=== PATIENT | male | born 1955 | race Caucasian/White ===

== ENCOUNTER → 2020-08-01 13:34 | Outpatient (BNVA) | payer MEDICARE, OTHER, SELFPAY | PROVIDERS: Family Provider Family Medicine; Visit Provider Emergency Medicine | DX: Z20.828 Contact with and (suspected) exposure to other viral communicable diseases (principal) | CPT/HCPCS: 87635 ==

== ENCOUNTER 2021-07-20 03:54 | Observation (INO) | payer MEDICARE, OTHER, SELFPAY ==
[2021-07-20] VITALS (22 sets, daily range): BP systolic 104–164; BP diastolic 69–96; PULSE 69–94; RESP 11–24; TEMP 36.8–37.1; O2SAT 84–96; BMI 38.0; BMI 37.2
--- NOTE | 2021-07-20 03:57 | CTR_ITS ---
PROCEDURE INFORMATION: Exam: CT Head Without Contrast Exam date and time: 07/20/2021 3:57 AM Age: 66 years old Clinical indication: Altered mental status/memory loss; Confusion or disorientation; Additional info: Symptoms of acute stroke TECHNIQUE: Imaging protocol: Computed tomography of the head without contrast. Radiation optimization: All CT scans at this facility use at least one of these dose optimization techniques: automated exposure control; mA and/or kV adjustment per patient size (includes targeted exams where dose is matched to clinical indication); or iterative reconstruction. Other technique: STROKE PROTOCOL was implemented. COMPARISON: No relevant prior studies available. RADIATION DOSE METRICS: Total DLP (mGy-cm): 784.31 FINDINGS: Brain: No hemorrhage, mass effect or midline shift. No acute, major vascular distribution infarction identified. There is a small focus of encephalomalacia in the left frontal lobe, likely sequela of previous insult. There is foci of decreased attenuation in the periventricular and subcortical white matter, likely representing chronic small vessel ischemic changes. Mild cerebral volume loss is present. No intra-axial or extra-axial fluid collection seen. Cerebral ventricles: No ventriculomegaly. Paranasal sinuses: There is near complete opacification of the ethmoid air cells, partial opacification of the frontal sinuses, and mild mucosal thickening of the included maxillary sinuses and sphenoid sinuses. Mastoid air cells: Visualized mastoid air cells are well aerated. Bones/joints: Unremarkable. No acute fracture. Soft tissues: Unremarkable. CT/CT head wo con* [id number] IMPRESSION: 1. No acute intracranial abnormality. 2. Pansinus inflammatory changes. ASSESSMENT: ASPECTS ([place] Stroke Program Early CT Score) is 10. Radiation Dose CTDIVOL = (mGy): DLP = 784.31 (mGy-cm)
--- NOTE | 2021-07-20 03:57 | ECG_ITS ---
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 Measurements Intervals [place] Rate: 73 P: -10 [place]: 173 QRS: -17 QRSD: 106 T: 8 QT: 381 QTc: 420 Interpretive Statements SINUS RHYTHM MINIMAL VOLTAGE CRITERIA FOR LVH, CONSIDER NORMAL VARIANT [MEETS CRITERIA IN ONE OF: R(aVL), S(V1), R(V5), R(V5/V6)+S(V1)] No previous ECG available for comparison Electronically Signed On 07-21-2021 17:39:53 REAL ESTATE PROFESSOR by Iraj Tucker M.D. [id number]
--- NOTE | 2021-07-20 03:57 | XRR_ITS ---
PROCEDURE INFORMATION: Exam: XR Chest Exam date and time: 07/20/2021 3:57 AM Age: 66 years old Clinical indication: Dyspnea; Additional info: CVA TECHNIQUE: Imaging protocol: XR of the chest. Views: 1 view. COMPARISON: CT chest w con* [id number] 12/12/2018 1:31 PM FINDINGS: Lungs: Minor areas of scarring or atelectasis lower lungs. Pleural spaces: Unremarkable. No pleural effusion. No pneumothorax. Heart/Mediastinum: Cardiomediastinal silhouette is similar. Vasculature: Tortuosity thoracic aorta. Bones/joints: Unremarkable. XR/XR chest 1V portable [id number] IMPRESSION: 1. Minor scarring or atelectasis lower lungs. 2. Atherosclerosis thoracic aorta. Radiation Dose CTDIVOL = (mGy): DLP = (mGy-cm)
--- NOTE | 2021-07-20 04:12 | ED_ITS ---
HPI - Neuro Symptoms/Deficit General: Chief Complaint: Neuro Symptoms/Deficit Stated Complaint: POSSIBLE STROKE Time Seen by Provider: 07/20/21 03:57 Source: patient, family and EMS Mode of arrival: EMS Limitations: altered mental status History of Present Illness: HPI Narrative: 58-year-old male who is here by EMS for strokelike symptoms. He went to bed at 9:00 per he had gotten up at 1:00 to go to the bathroom she spoke to him asking him what he was doing he said his get up to go the bathroom she asked him if he is up for the day and he said no and went back to bed. She states that he then woke up that 3:00 with confusion he was having a hard time using his right hand and was having slurred speech and difficulty finding his words with speaking and confusion.. Here he is able to tell me his name but he is confused and does have some word finding difficulty. Associated symptoms: Deny chest pain, nausea or vomiting Review of Systems Const: Denies: fever(s), chills, body aches or change in appetite Eyes: Denies: blurry vision or eye discomfort ENMT: Denies: throat pain or dental pain Card: Denies: chest pain Resp: Denies: dyspnea GI: Denies: abdominal pain, nausea, vomiting or diarrhea : Denies: dysuria Musc: Denies: neck pain or back pain Skin/Breast: Denies: rash Neuro: Reports: Slurred speech present Psych: Denies: depression Dante/Lymph: Denies: easy bruising All/Imm: Denies: urticaria PFSH ED PFSH: Medical History No pertinent past medical history Skin cancer (melanoma) Surgical History H/O melanoma excision Family History Other Cancer Social History Smoking and tobacco status: never smoked Alcohol intake: never Substance/Drug Use: never Household members: spouse Housing: House NIH stroke score NIHSS: Level Of Consciousness - 1a: 2 Level Of Consciousness Questions - 1 b: Both Correct Level Of Consciousness Commands - 1c: Both Correct Best Gaze - 2: Normal Visual Cochran - 3: Partial Hemianopia Facial Palsy - 4: Minor Paralysis Motor Arm Right - 5: No Drift Motor Arm Left - 5: No Drift Motor Leg Right - 6: No Drift Motor Leg Left - 6: No Drift Limb Ataxia - 7: Absent Sensory - 8: Normal Best Language - 9: Mild/Moderate Aphasia Dysarthia - 10: Mild/Moderate Dysarthia Extinction And Inattention - 11: 0 Score: Total Score: 6 Physical Exam Const: COMMON NORMALS: healthy appearing; negative for patient oriented x3 ORIENTATION/CONSCIOUSNESS: Yes awake and Yes oriented to person; not oriented to time HENMT: COMMON NORMALS: normocephalic and atraumatic HEAD & SCALP: normocephalic and atraumatic Eye: COMMON NORMALS: Equal, round and reactive pupils present and EOMs intact bilaterally PUPIL: Yes Equal, round and reactive pupils present Neck/C-Spine: COMMON NORMALS: full ROM and supple Chest: COMMONS NORMALS: normal inspection of the chest and normal palpation of entire chest wall Resp: COMMON NORMALS: normal respiratory effort, No retractions, No use of accessory muscles and clear to auscultation bilaterally AUSCULTATION: clear to auscultation bilaterally Cardio: COMMON NORMALS: regular rate, regular rhythm and No murmurs present (Cardio) RATE: regular rate RHYTHM: regular rhythm GI: COMMON NORMALS: Normal to inspection, nondistended, normoactive bowel sounds present, Soft to palpation, non-tender and no masses PALPATION: Yes Soft to palpation Extremity: COMMON NORMALS: normal to inspection and full ROM Neuro: COMMON NORMALS: moves all extremities; negative for patient oriented x3 SENSORIUM/ORIENTATION: Yes oriented to person and No oriented to time CRANIAL NERVES: Yes other (loss visual cochran right lower quadrant of both eyes) SPEECH: Other neuro speech findings (Moderate aphasia) SENSORY EXAM: No extremities MOTOR EXAM: 5/5 motor strength present throughout Psych: COMMON NORMALS: mental status grossly normal, Normal thought process present and cooperative THOUGHT PROCESS: Normal thought process present Skin: COMMON NORMALS: no rashes or lesions noted and no wounds GENERAL SKIN EXAM: no rashes or lesions noted Course Vital Signs: Vital signs: Vital Signs Temperature 98.7 F 07/20/21 19:00 Pulse Rate 81 07/20/21 19:30 Respiratory Rate 17 07/20/21 19:30 Blood Pressure 132/93 07/20/21 19:30 Pulse Oximetry 88 L 07/20/21 19:30 MDM - Neuro Symptoms/Deficit MDM Narrative: Medical decision making narrative: Patient presents here with strokelike symptoms he was in the treatment window and was given TPA. Was a slight delay in the TPA had ordered at to be given at 415 IV by EMS and went bad nurse had to start another IV. Patient was still within the 4-1/2-hour treatment window he had some improvement here after TPA CTA showed no acute abnormality will admit the ICU. Lab Data: Labs: Lab Results 07/20/21 07/20/21 07/20/21 04:25 04:25 04:25 WBC 6.8 10^3/uL 10^3/ uL (4.0-10.0) RBC 4.96 10^6/uL 10^6 /uL (4.1-5.3) Hgb 14.2 g/dL g/dL (11.7-16.6) Hct 41.9 % L % (42.0-52.0) MCV 84.5 fl fl (80-94) MCH 28.6 pg pg (28.0-34.0) MCHC 33.9 g/dL g/dL (30.0-36.0) RDW 14.4 % % (12.1-15.1) Plt Count 230 10^3/cmm 10^3 /cmm (130-400) MPV 10.0 fL fL (7.4-10.4) Neut % (Auto) 57.3 % % Lymph % (Auto) 29.9 % % [place] % (Auto) 7.1 % % Eos % (Auto) 4.9 % % Baso % (Auto) 0.4 % % Neut # (Auto) 3.88 10^3/uL 10^3 /uL (1.8-7.7) Lymph # (Auto) 2.0 10^3/uL 10^3/ uL (0.8-4.8) [place] # (Auto) 0.5 10^3/uL 10^3/ uL (0.2-0.9) Eos # (Auto) 0.3 10^3/uL 10^3/ uL (0.0-0.8) Baso # (Auto) 0.0 10^3/uL 10^3/ uL (0.0-0.1) Nucleated RBC % (a uto) 0 % % Nucleated RBCs # 0.0 /100WBC /100W BC PT 13.20 SECONDS SEC ONDS (12.1-14.9) INR 0.97 (0.8-1.2) APTT 26.4 SECONDS SECO NDS (23.9-36.7) Sodium 139 mmol/L mmol/L (136-145) Potassium 4.7 mmol/L mmol/L (3.5-5.1) Chloride 104 mmol/L mmol/L (98-107) Carbon Dioxide 25 mmol/L mmol/L (22-29) Anion Gap 14.7 (5-19) BUN 17 mg/dL mg/dL (8-23) Creatinine 0.8 mg/dL mg/dL (0.7-1.2) GFR Calculation 96.1 mL/min mL/mi n (90-130) Glucose 110 mg/dL mg/dL (65-115) POC Glucose Calculated Osmolal ity 290 mOsm/kg mOsm/ kg (285-295) Calcium 8.3 mg/dL L mg/dL (8.5-10.5) Total Bilirubin 0.4 mg/dL mg/dL (0.15-1.2) AST 16 U/L U/L (0-40) ALT 18 U/L U/L (0-41) Alkaline Phosphata se 125 IU/L IU/L (40-130) Total Protein 6.1 g/dL L g/dL (6.6-8.7) Albumin 3.9 g/dL g/dL (3.5-5.2) Globulin 2.2 g/dL g/dL (1.3-4.6) Urine Color Urine Appearance Urine pH Ur Specific Gravit y Urine Protein Urine Glucose (UA) Urine Ketones Urine Blood Urine Nitrate Urine Bilirubin Urine Urobilinogen Ur Leukocyte Mony ase Urine RBC Urine WBC Ur Squamous Epith Cells Amorphous Sediment Urine Bacteria 07/20/21 07/20/21 04:29 05:30 WBC RBC Hgb Hct MCV MCH MCHC RDW Plt Count MPV Neut % (Auto) Lymph % (Auto) [place] % (Auto) Eos % (Auto) Baso % (Auto) Neut # (Auto) Lymph # (Auto) [place] # (Auto) Eos # (Auto) Baso # (Auto) Nucleated RBC % (a uto) Nucleated RBCs # PT INR APTT Sodium Potassium Chloride Carbon Dioxide Anion Gap BUN Creatinine GFR Calculation Glucose POC Glucose 107 mg/dL mg/dL (70-110) Calculated Osmolal ity Calcium Total Bilirubin AST ALT Alkaline Phosphata se Total Protein Albumin Globulin Urine Color Straw (Yellow) Urine Appearance Clear (CLEAR) Urine pH 7 (5-7) Ur Specific Gravit y 1.010 (1.005-1.030) Urine Protein Neg (Negative) Urine Glucose (UA) Norm (Normal) Urine Ketones Negative (Negative) Urine Blood 2+ H (Negative) Urine Nitrate Negative (Negative) Urine Bilirubin Neg (Negative) Urine Urobilinogen Norm mg/dL mg/dL (Negative) Ur Leukocyte Mony ase Negative (Negative) Urine RBC 0-4 /hpf H /hpf (0-2) Urine WBC None /hpf /hpf (0-5) Ur Squamous Epith Cells 0-4 /hpf H /hpf (0-5) Amorphous Sediment Not Reportable Urine Bacteria Trace /hpf /hpf (NONE) Discharge Plan Discharge Patient Disposition: Admitted As Inpatient Admit Provider: Fransisco Lane Clinical Impression: Cerebrovascular accident Qualifiers: CVA mechanism: unspecified Qualified Code(s): I63.9 - Cerebral infarction, unspecified Condition: Stable Coding Level of Care Code ED Combine Operator for [facility] Fwd Exam Comprehensive
--- NOTE | 2021-07-20 04:15 | CTR_ITS ---
PROCEDURE INFORMATION: Exam: CT Angiography Head With Contrast, Arteriography Exam date and time: 07/20/2021 4:15 AM Age: 66 years old Clinical indication: Other: CVA TECHNIQUE: Imaging protocol: Computed tomography angiography of the head with contrast. Exam focused on the arteries. 3D rendering (Not supervised by radiologist): MIP and/or 3D reconstructed images were created by the technologist. Radiation optimization: All CT scans at this facility use at least one of these dose optimization techniques: automated exposure control; mA and/or kV adjustment per patient size (includes targeted exams where dose is matched to clinical indication); or iterative reconstruction. Contrast material: VISI; Contrast volume: 95 ml; Contrast route: INTRAVENOUS (IV); COMPARISON: CT head wo con* [id number] 07/20/2021 3:58 AM RADIATION DOSE METRICS: Total DLP (mGy-cm): 3071.53 FINDINGS: ANTERIOR CIRCULATION: Right internal carotid artery: Unremarkable. Intracranial segment is patent with no significant stenosis. No aneurysm. Right middle cerebral artery: Unremarkable. No occlusion or significant stenosis. No aneurysm. Right anterior cerebral artery: Unremarkable. No occlusion or significant stenosis. No aneurysm. Left internal carotid artery: Unremarkable. Intracranial segment is patent with no significant stenosis. No aneurysm. Left middle cerebral artery: Unremarkable. No occlusion or significant stenosis. No aneurysm. Left anterior cerebral artery: Unremarkable. No occlusion or significant stenosis. No aneurysm. POSTERIOR CIRCULATION: Right vertebral artery: Unremarkable. No occlusion or significant stenosis. No aneurysm. Left vertebral artery: Unremarkable. No occlusion or significant stenosis. No aneurysm. Basilar artery: Unremarkable. No occlusion or significant stenosis. No aneurysm. Right posterior cerebral artery: Unremarkable. No occlusion or significant stenosis. No aneurysm. Left posterior cerebral artery: Unremarkable. No occlusion or significant stenosis. No aneurysm. Variant origin of left posterior cerebral distribution. Brain: No definite mass, mass effect, or midline shift. Cerebral ventricles: No ventriculomegaly. Bones/joints: Degenerative changes of bilateral temporomandibular joints. Soft tissues: Unremarkable. Paranasal sinuses: Mucosal thickening of the visualized paranasal sinuses. Nasal cavity: Elongated hyperdense or calcific density at the lower left nasal cavity partially extending within osseous structures at the maxilla. IMPRESSION: 1. Sinusitis. 2. Elongated hyperdense or calcific density partially position left nasal cavity and partial positioning within maxillary bone. The differential could include a nonspecific bony exostosis versus left nasal foreign body less likely consideration. PROCEDURE INFORMATION: Exam: CT Angiography Neck With Contrast Exam date and time: 07/20/2021 4:15 AM Age: 66 years old Clinical indication: Other: CVA TECHNIQUE: Imaging protocol: Computed tomography angiography of the neck with contrast. 3D rendering (Not supervised by radiologist): MIP and/or 3D reconstructed images were created by the technologist. Radiation optimization: All CT scans at this facility use at least one of these dose optimization techniques: automated exposure control; mA and/or kV adjustment per patient size (includes targeted exams where dose is matched to clinical indication); or iterative reconstruction. Contrast material: VISI; Contrast volume: 95 ml; Contrast route: INTRAVENOUS (IV); COMPARISON: CT head wo con* [id number] 07/20/2021 3:58 AM RADIATION DOSE METRICS: Total DLP (mGy-cm): 3071.53 FINDINGS: Right common carotid artery: No stenosis. No dissection or occlusion. Right internal carotid artery: No stenosis of the extracranial segment. No dissection or occlusion. Right external carotid artery: No occlusion or stenosis of the origin. Left common carotid artery: No stenosis. No dissection or occlusion. Left internal carotid artery: No stenosis of the extracranial segment. No dissection or occlusion. Left external carotid artery: No occlusion or stenosis of the origin. Right vertebral artery: No stenosis. No dissection or occlusion. Diminutive caliber. Left vertebral artery: No stenosis. No dissection or occlusion. Aorta: Calcified thoracic aorta. Thyroid: Irregular hypodense or partially cystic nodule left thyroid measures 2.8 cm. Partially calcified nodule right thyroid measures 0.9 cm. Soft tissues: Normal. No significant soft tissue swelling. Bones/joints: Mild degenerative change of cervical spine. Heart: Atherosclerotic calcification distribution of coronary arteries. CT/CT angio headneck* [id number] IMPRESSION: 1. No arterial occlusion or high-grade stenosis. 2. Calcification thoracic aortic arch. 3. Hypodense nodule left thyroid.Follow-up non-emergent thyroid ultrasound is recommended. 4. Degenerative changes cervical spine. COMMENTS: Consistent with the [place]'s Incidental Findings Committee white paper (J Am Gabi Radiol 2015): In patients aged 35 years and older with an incidental thyroid nodule equal to or greater than 1.[address], MRI or extrathyroidal US, further evaluation with dedicated thyroid US is recommended for patients with normal life expectancy and without comorbidities. For smaller nodules without suspicious features, no further evaluation or follow up is recommended. REFERENCES: NASCET CRITERIA. The degree of internal carotid artery stenosis is based on NASCET criteria. Normal is no stenosis. Mild is less than 50% stenosis. Moderate is 50-69% stenosis. Severe is 70% to 99% stenosis. Total occlusion is no detectable patent lumen. Radiation Dose CTDIVOL = (mGy): DLP = 3071.53~3071.53 (mGy-cm)
[2021-07-20 04:38] LABS: Glucose Point of Care 107 mg/dL (70-110)
[2021-07-20 05:01] LABS: Basophils % 0.4 %; Eosinophils # 0.3 10^3/uL (0.0-0.8); Eosinophils % 4.9 %; Hematocrit 41.9 % (42.0-52.0); Hemoglobin 14.2 g/dL (11.7-16.6); Lymphocytes % 29.9 %; Mean Corpuscular HGB Conc 33.9 g/dL (30.0-36.0); Mean Corpuscular Hemoglobin 28.6 pg (28.0-34.0); Mean Corpuscular Volume 84.5 fl (80-94); Monocytes # 0.5 10^3/uL (0.2-0.9); Monocytes % 7.1 %; Neutrophils # 3.88 10^3/uL (1.8-7.7); Neutrophils % 57.3 %; Nucleated Red Blood Cells % 0 %; Platelet Count 230 10^3/cmm (130-400); Red Blood Count 4.96 10^6/uL (4.1-5.3); Red Cell Distribution Width 14.4 % (12.1-15.1); White Blood Count 6.8 10^3/uL (4.0-10.0)
[2021-07-20 05:16] LABS: INR 0.97 (0.8-1.2)
[2021-07-20 05:17] LABS: Partial Thromboplastin Time 26.4 SECONDS (23.9-36.7)
[2021-07-20 05:19] LABS: Albumin Level 3.9 g/dL (3.5-5.2); Alkaline Phosphatase 125 IU/L (40-130); Blood Urea Nitrogen 17 mg/dL (8-23); Calcium 8.3 mg/dL (8.5-10.5); Carbon Dioxide 25 mmol/L (22-29); Chloride 104 mmol/L (98-107); Globulin 2.2 g/dL (1.3-4.6); Glomerular Filtration Rate 96.1 mL/min (90-130); Glucose 110 mg/dL (65-115); Osmolality Calculated 290 mOsm/kg (285-295); Sodium 139 mmol/L (136-145); Total Bilirubin 0.4 mg/dL (0.15-1.2); Total Protein 6.1 g/dL (6.6-8.7)
--- NOTE | 2021-07-20 05:22 | PC.NURSE ---
Upper extremity deficit Bitlateral arms extend without drift, no effort against gravity. 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
[2021-07-20] MEDS: iodixanol 320 mg/mL 100mL Btl IV (05:27)
--- NOTE | 2021-07-20 05:42 | P.HP_ITS ---
Providers/Chief Complaint Primary Care Provider: Pancho Carpenter MD Chief Complaint: POSSIBLE STROKE History of Present Illness Sami Hinojosa is a 66 year old male without significant past medical surgical history presented today for right-sided weakness and slurring of speech. is at the bedside who stating that he went to bed around 9 PM. Woke up at 1 AM and at that time he went to the bathroom without any limitations. Around 3 AM he was not able to target right hand to grab tablets, noticed mild slurring of speech at that time EMS was called. No previous history of CA, CHF, diabetes, hypertension. He does not take any medications at home on daily basis. In the ER NIH 6(slurring of speech, right-sided weakness, right lower quadrant visual field deficit) on presentation, CT head unremarkable, patient was complaining of headache since 3 AM. He received TPA. tPA bolus finished at 6 AM. Patient is stating that his headache is improving, I will give him a NIH of 1 for mild right-sided weakness. His symptoms seems to be resolving. Family at the bedside. Blood pressure 132/94 mmHg, afebrile, awake and alert. Patient is vaccinated with messenger RNA vaccine, for COVID-19. Review of Systems Const: Denies: fever(s) Eyes: Denies: change in vision ENMT: Denies: throat pain Card: Denies: chest pain Resp: Denies: dyspnea GI: Denies: abdominal pain : Denies: flank pain Musc: Denies: neck pain Skin/Breast: Denies: rash Neuro: Denies: headache(s) Psych: Denies: anxiety Endo: Denies: polyuria Dante/Lymph: Denies: easy bruising All/Imm: Denies: urticaria Medications/Allergies Home Medications Medication Instructions Recorded Confirmed Last Taken Type albuterol sulfate 90 mcg/actuation 2 puff INHALATION Q6H PRN #8.5 g 12/14/20 07/20/21 Unknown Rx aerosol inhaler benzonatate 100 mg capsule 100 mg PO TID 10 Days #30 cap 12/18/20 07/20/21 Unknown Rx levofloxacin 750 mg tablet 750 mg PO Q24H 7 Days #7 tab 12/18/20 12/18/20 Unknown Rx prednisone 20 mg tablet See Rx Instructions PO DAILY 10 12/18/20 12/18/20 Unknown Rx Days #10 tab Allergies Allergy/AdvReac Type Severity Reaction Status Date / Time No Known Allergies Allergy Verified 07/20/21 05:10 PFSH Acute PFSH: Medical History No pertinent past medical history Skin cancer (melanoma) Surgical History H/O melanoma excision Family History Other Cancer Social History Smoking and tobacco status: never smoked Alcohol intake: never Substance/Drug Use: never Household members: spouse Housing: House Vitals/I&O/Wt Last Vital Signs Pulse 80 07/20/21 04:10 Resp 16 07/20/21 04:10 BP 132/94 07/20/21 04:10 Pulse Ox 95 07/20/21 04:10 Weight last 48 hrs Weight 127.142 kg Physical Exam Narrative: EXAM NARRATIVE: Patient was laying supine NIH 1 for mild right-sided weakness EOMI, PERRLA I did not appreciate slurring of speech Looks well-hydrated Blood pressure stable S1, S2 Abdomen soft, distended, visceral obesity no signs of peritonitis Appropriate mood and affect No expressive aphasia and daughter at the bedside No audible stridor or wheezing Saturating well on room air Data : 07/20/21 04:25 07/20/21 04:25 A&P Assessment and plan (1) Cerebrovascular accident: Status: Acute Qualifiers: CVA mechanism: unspecified Qualified Code(s): I63.9 - Cerebral infarcti on, unspecified Additional A&P Information Acute CVA Status post TPA, bolus finished at [address] scan of head after 24 hours Patient is stating that he he started experiencing headache at 3 AM which currently is getting better but has not subsided completely NIH 1 which improved after TPA Goal blood pressure less than 180/80 mmHg He is afebrile Start aspirin 24 hours after TPA, continue atorvastatin PT/speech evaluation Dr. Hathaway consulted N.p.o. until speech evaluation SCDs DVT prophylaxis Full code Patient is vaccinated for COVID-19 Attestations Medical Necessity Statement*: Less than 2 midnights in the hospital expected Time Spent in Patient Care: Greater than 35 minutes Coding Level of Care Code Acute Web Designer Developer for [employer] Fwd Diagnoses Cerebrovascular accident I63.9 CVA mechanism: unspecified
[2021-07-20] MEDS: acetaminophen 325 mg Tablet 650 MG PO (05:54)
[2021-07-20 06:14] LABS: Alanine Aminotransferase 18 U/L (0-41); Anion Gap 14.7 (5-19); Aspartate Amino Transferase 16 U/L (0-40); Potassium 4.7 mmol/L (3.5-5.1)
--- NOTE | 2021-07-20 06:46 | PC.NURSE ---
See stroke paperwork for vitals and neuro checks.
--- NOTE | 2021-07-20 07:47 | PC.NURSE ---
0700 Pt arrived from ED with ED staff at bedside. Pt AAO to self only, all other questions are answered with jumbles words or I don't know . Pt connected to ICU monitors after transferring self over to ICU bed. Follows directions appropriately. Moves all extremities well. Slight weakness noted to RUE. No other weakness noted. Bilateral 18g PIV's to AC's noted. Both IV's flushed, L AC sluggish. Admission assessment completed as well as possible with pt. VSS. NIHSS of 4 upon arrival. Will continue to monitor.
--- NOTE | 2021-07-20 08:06 | USCV_ITS ---
Sami Hinojosa Age: 66 Gender: M : 1955 Exam Date: 07/20/2021 09:58 Ordering Phys: Isabel Hathaway MD Technologist: TETE [place] [facility] [place]: CVA BP: 142 / 84 HR: 85 Rhythm: Sinus Technical Quality: Very technically difficult study MEASUREMENTS (Male / Female) Normal Values 2D ECHO LV Diastolic Diameter PLAX 3.1 cm 4.2 - 5.9 / 3.9 - 5.3 cm LV Systolic Diameter PLAX 2.3 cm IVS Diastolic Thickness 1.4 cm 0.6 - 1.0 / 0.6 - 0.9 cm IVS Systolic Thickness 1.9 cm LVPW Diastolic Thickness 1.6 cm 0.6 - 1.0 / 0.6 - 0.9 cm LVPW Systolic Thickness 1.6 cm LVOT Diameter 2.0 cm LV Ejection Fraction 2D Teich 50.1 % LA Diameter 2.5 cm Aorta at Sinotubular Diameter 2.5 cm M-MODE Aortic Annulus Diameter 3.6 cm LA Ao Ratio MM 0.8 MV E Point Septal Separation 1.4 cm DOPPLER AV Peak Velocity 121.0 cm/s MV Area PHT 3.1 cm squared Mitral E to A Ratio 0.8 MV E' Velocity 58.0 cm/s TR Peak Velocity 193.0 cm/s TR Peak Gradient 14.9 mmHg TV Peak E Velocity 58.0 cm/s Right Atrial Pressure 3.0 mmHg Pulmonary Artery Systolic Pressu 17.9 mmHg PV Peak Velocity 84.0 cm/s RV Acceleration Time 0.1 s RV Ejection Time 0.2 s RV AcT/ET 0.5 FINDINGS Left Ventricle Technically very difficult study with limited visualization of cardiac structures. Normal left ventricular size. LV systolic function is grossly normal. Regional wall motion abnormalities cannot be assessed because of poor visualization. Grade 1 diastolic dysfunction is seen. Right Ventricle Not well visualized Right Atrium Not well visualized Left Atrium Not well visualized Mitral Valve Not well visualized. No significant stenosis or prolapse. There is no mitral regurgitation. Aortic Valve Not well visualized. No significant stenosis. There is no aortic regurgitation. Tricuspid Valve Not visualized. Insufficient TR jet to calculate RVSP Pulmonic Valve Not visualized Pericardium Not well-visualized Aorta Not well-visualized CONCLUSIONS Technically very difficult study with limited visualization of cardiac structures because of poor ultrasonic windows. Patient and family refused echo contrast. Grossly LV systolic function is normal. Grade 1 diastolic dysfunction. Valvular structures are not well-visualized however no gross abnormalities. No comparison studies are available Iraj Tucker MD (Electronically Signed) Final Date: 28 July 2021 17:51 S
[2021-07-20 08:08] LABS: Add Urine Microscopic? YES; Bilirubin Urine Neg (Negative); Blood Urine 2+ (Negative); Glucose Urine UA Norm (Normal); Ketones Urine Negative (Negative); Leukocyte Esterase Urine Negative (Negative); Nitrate Urine Negative (Negative); Protein Urine Neg (Negative); Urine Appearance Clear (CLEAR); Urine Color Straw (Yellow); Urobilinogen Urine Norm (Negative); pH Urine 7 (5-7)
[2021-07-20 08:26] LABS: RBC Urine 0-4 /hpf (0-2)
[2021-07-20 08:27] LABS: Add Urine Culture? No; Bacteria Urine TRACE /hpf; Squamous Epithelial Cell Urine 0-4 /hpf (0-5)
[2021-07-20] MEDS: pneumococcal (23 valent) SDV 0.5 mL IM (08:35)
[2021-07-20] MEDS: benzonatate 100 mg Capsule PO ×3 (08:36→20:39)
[2021-07-20] MEDS: atorvastatin 40 mg Tablet 80 MG PO (08:36)
--- NOTE | 2021-07-20 09:19 | PC.PHAR ---
pts family states the pt takes no rx medications states the pt doesnt use the inhaler any longer-pt unable to verify meds pt couldnt verify his -pts family verified pts and meds
--- NOTE | 2021-07-20 10:08 | P.PN_ITS ---
Subjective Subjective: Interval history: History and physical reviewed. Patient without any specific complaints today. Nursing has noted word substitution, word salad. He received TPA earlier this morning. Medications: Reviewed: Yes Vitals/I&O/Wt Last Vital Signs Temp 98.3 F 07/20/21 09:00 Pulse 71 07/20/21 09:00 Resp 13 07/20/21 09:00 BP 132/94 07/20/21 04:10 Pulse Ox 95 07/20/21 04:10 Weight last 48 hrs Weight 124.454 kg Weight 127.142 kg Physical Exam Narrative: EXAM NARRATIVE: General exam no distress, conversant, word salad Neck supple Cardiovascular regular rate and rhythm Lungs clear Abdomen is soft Extremities no cyanosis clubbing or edema, cap refill brisk Skin no rash Neuro: Some word substitution/salad noted. Right upper extremity neglect. Right upper extremity strength still intact. Data : 07/20/21 04:25 07/20/21 04:25 A&P Assessment and plan (1) Cerebrovascular accident: Was 6 on his NIH score in the emergency department. Appears to be lower than that currently. Symptomatology right-sided neglect, dysphasia Received TPA earlier today CT head nonacute on admission. Repeat CT head later today. CTA head and neck no flow-limiting stenosis. Aspirin, Plavix, statin Permissive hypertension Echocardiogram Telemetry indicates sinus rhythm Consider outpatient event monitor, JELENA Outpatient neurology follow-up Status: Acute Qualifiers: CVA mechanism: unspecified Qualified Code(s): I63.9 - Cerebral infarction, unspecified Additional A&P Information Thyroid nodule found on CTA. Check TSH. Consider outpatient ultrasound. Full code Lovenox for DVT prophylaxis Attestations Medical Necessity Statement*: Needs continued hospitalization for close monitoring status post TPA for CVA Coding Level of Care Code Acute School Operations Manager for [facility] Fwd Diagnoses Cerebrovascular accident I63.9 CVA mechanism: unspecified
--- NOTE | 2021-07-20 11:03 | PC.OT ---
OT EVALUATION ORDERS RECEIVED. WILL HOLD UNTIL TOMORROW DUE TO TPA ADMINISTRATION.
[2021-07-20] MEDS: acetaminophen 500 mg Tablet PO ×2 (11:10→23:42)
--- NOTE | 2021-07-20 11:22 | PC.NURSE ---
Pt c/o DELUCA. Acetaminophen given per orders. Neuro test performed. no worsening of neuro status. Will monitor.
[2021-07-20] MEDS: oxyCODONE 5 mg IR Tab/Cap PO ×2 (12:15→15:46)
--- NOTE | 2021-07-20 13:02 | PC.PT ---
Hold PT evaluation today. Pt received TPA 0600 on 07/20; will reattempt eval after 0600 on 07/21.
--- NOTE | 2021-07-20 14:00 | PC.NURSE ---
Pt still c/o DELUCA, stating that it feels worse. notified.
--- NOTE | 2021-07-20 14:45 | PC.NURSE ---
Pt shows definite R sided neglect. When moving R leg to wc pedal, pt was unsure of placement of foot. When giving pt med cup, he did not see the cup as this nurse moved it towards his R side. When the cup was moved midline he was able to see it and reach and grab it without difficulty. Continues to have difficulty with speech, word salad noted at times. Continues to c/o headache, CT completed early per MD order. No hemorrhage noted per CT report. Family notified. Will monitor.
--- NOTE | 2021-07-20 15:00 | CT_ITS ---
WS: [id number] CT HEAD NONCONTRAST HISTORY: post tpa TECHNIQUE: Contiguous axial imaging performed through the brain in 2.5 mm imaging. Bone and soft tiss ue windows. Sagittal and coronal reformats reviewed. All CT scans at [facility] use at least one of these dose optimization techniques: automated exposure control; mA and/or kV adjustment per pa tient size (includes targeted exams where dose is matched to clinical indication); or iterative recon struction. DLP: 852.8 mGy.cm COMPARISON: 07/20/2021 No acute intracranial hemorrhage, midline shift or mass effect. Interval development of edema with loss of the colin-white matter junction and differentiation involvi ng a large portion of the LEFT MCA territory. No hemorrhagic transformation. There is no midline shif t. Ventricles: Normal size with no hydrocephalus. No inferior displacement of cerebellar tonsils. Paranasal sinuses: Mild mucoperiosteal thickening in the paranasal sinuses. No air-fluid levels. Mastoid air cells: Well pneumatized. Calvarium and scalp: Skull is intact with no soft tissue edema or swelling. CT/CT head wo con* 18800 IMPRESSION: 1. No acute hemorrhage or hemorrhagic transformation. 2. Interval development of a subacute infarct involving a large portion of the LEFT MCA territory.
--- NOTE | 2021-07-20 15:26 | PC.NURSE ---
Pt states that he is feeling better. Will monitor
--- NOTE | 2021-07-20 17:42 | PC.NURSE ---
Shift Note Frequent safety and comfort rounds continue. Orders and/or nursing care completed as indicated. Patient monitored for response to intervention and treatment(s). Education provided includes treatment plan, need for continued monitoring, s/s of bleeding and stroke, and medications. Pt requires frequent reminders of need to be here. He is adamant that he could go home and do what he needs to. Educated that he must remain here to be monitored for any s/s of increasing stroke sx. Pt agrees at this time, and daughter at bedside. VSS. Pt able to stand at bedside to urinate with standby assist. Nih score 5. VSS. Will continue to monitor.
[2021-07-20] MEDS: ondansetron 2 mg/ML SDV 2 mL 4 MG IVP (19:05)
--- NOTE | 2021-07-20 19:35 | PM.SAN ---
Stroke Alert Activation ED Arrival Date: 07/20/21 ED Arrival Time: 03:57 ED Physican at Bedside: 03:57 Last Known Normal/at Baseline: 2-3 hours ago Other Last Known Well Infomation: I participated in telemetry stroke with Dr. Rose from 352 until around 430 Stroke team was activated at 0352, 5 minutes prior to the patient's arrival by EMS. I called immediately back to the emergency department and the patient was rolling in and going straight to CAT scan with Dr. Rose. Dr. Rose obtained history from EMS and then from the patient's . He was last known normal at 1 in the morning when he got up to the bathroom, while she was wide-awake. She was just getting ready to go to bed at 3 in the morning when he got up and could not use his right hand properly, could not find his cup with his right hand and could not see objects on his right like the cupboard door. He was confused and seemed fearful that things were not as they should be. She became concerned that he was having a stroke and called EMS. Dr. Rose determined that the patient was confused and could not read simple sentences. He had difficulty with repetition and he had a right visual field cut. These findings suggested either left middle cerebral artery posterior branch or left posterior cerebral artery ischemia. We agreed that the patient should receive TPA, since his cognition was significantly impaired, he had a measurable visual deficit, was not on blood thinners, his blood pressure was under control and there were no contraindications to TPA. The family was in favor. It looks like the bolus was given at 0415 Stroke Alert Activated by: EMS Stroke Alert Activation Time: 03:52 Stroke MD @ Bedside Time: 03:53 NIH Stroke Scale Time: 04:12 NIH Stroke Scale Score: NIH Stroke Scale Score: 6 Stroke Alert Data/Treatment tPA Started Time: tPA Started - Time: 04:15 Patient & Family Educated on: Cause of Stroke, Risk Factors and Treament Plan Other Patient & Family Education: I visited with the patient and the family at 0745 Standardized Stroke Orders Used: Yes Other Information: Neurologic exam this morning at 07 45: Mental status exam he was alert and made good eye contact. He followed some simple commands but no two-step commands and not across the midline. He could repeat a simple and a complex phrase. Cranial nerves remarkable for dense right homonymous hemianopsia. No motor deficit. No drift. Fine movements rapid and symmetric in the hands. Critical Care Time Critical Care Time: 30 - 74 mins A&P Assessment and plan (1) Cerebrovascular accident: There is a 66-year-old man who woke up at 3 in the morning, having been normal 2 hours before, with a visual field cut and confusion with a alexia. The examination obtained by Dr. Rose was consistent with an acute ischemic stroke and there was no contraindication to TPA. The patient promptly received TPA within 20 minutes of arrival. 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 His CT angiogram shows no significant stenosis of the intracranial or extracranial vessels. Aortic arch calcifications were seen. Plan cardiac work-up including echocardiogram followed by JELENA and event detector as outpatient. 24 hours after TPA initiate Plavix and aspirin. CAT scan of the head today confirms a posterior branch left middle cerebral artery stroke with edema but no hemorrhage. I talked with the family and explained that the benefit of TPA is obtained at long-term (3 months). Patient was not a candidate for embolectomy. His prognosis should be good based upon his exam. Status: Acute Qualifiers: CVA mechanism: unspecified Qualified Code(s): I63.9 - Cerebral infarction, unspecified (2) Received intravenous tissue plasminogen activator (tPA) in emergency department: Status: Acute Coding Level of Care Code Acute Visual Effects Editor for [facility] Fwd Diagnoses Cerebrovascular accident I63.9 CVA mechanism: unspecified Received intravenous tissue plasminogen activator (tPA) in emergency department Z92.82
[2021-07-21] VITALS (25 sets, daily range): BP systolic 105–169; BP diastolic 63–119; PULSE 73–107; RESP 11–25; TEMP 36.6–37.1; O2SAT 89–96
--- NOTE | 2021-07-21 01:56 | PC.NURSE ---
Patient apparently called on cell phone, asking to pick him up. Patient reoriented, explained POC, plans going forward. Patient agreed, still slightly confused but overall neurological status largely unchanged.
[2021-07-21 04:19] LABS: Basophils % 0.3 %; Eosinophils # 0.1 10^3/uL (0.0-0.8); Hematocrit 43.7 % (42.0-52.0); Hemoglobin 14.2 g/dL (11.7-16.6); Lymphocytes # 1.9 10^3/uL (0.8-4.8); Mean Corpuscular HGB Conc 32.5 g/dL (30.0-36.0); Mean Corpuscular Hemoglobin 28.5 pg (28.0-34.0); Mean Corpuscular Volume 87.8 fl (80-94); Mean Platelet Volume 9.9 fL (7.4-10.4); Monocytes # 0.5 10^3/uL (0.2-0.9); Monocytes % 5.4 %; Neutrophils # 6.47 10^3/uL (1.8-7.7); Nucleated Red Blood Cells % 0 %; Platelet Count 221 10^3/cmm (130-400); Red Blood Count 4.98 10^6/uL (4.1-5.3); Red Cell Distribution Width 14.6 % (12.1-15.1)
[2021-07-21 04:37] LABS: Anion Gap 15.4 (5-19); Blood Urea Nitrogen 11 mg/dL (8-23); Calcium 8.3 mg/dL (8.5-10.5); Carbon Dioxide 23 mmol/L (22-29); Chloride 104 mmol/L (98-107); Glomerular Filtration Rate 96.1 mL/min (90-130); Glucose 119 mg/dL (65-115); Osmolality Calculated 287 mOsm/kg (285-295); Potassium 4.4 mmol/L (3.5-5.1); Sodium 138 mmol/L (136-145)
--- NOTE | 2021-07-21 06:35 | PC.NURSE ---
Report given to day shift RN.
--- NOTE | 2021-07-21 06:52 | PC.NURSE ---
Pt report received, assessment completed. Pt AAO to self only. Unable to tell me his last name, the month, the year or the place that he is. When going over stroke scale words and images, he is able to use some alternate words to explain images but is unable to use the appropriate words. He has some sensory deprivation noted to R side and some R visual field loss. No weakness noted to RUE compared to yesterday. He is able to let staff know that his head hurts at times and that he needs to use urinal. HOB is elevated and CLWR. VSS, lung sounds CTA. Will monitor.
[2021-07-21] MEDS: atorvastatin 40 mg Tablet 80 MG PO (08:48)
[2021-07-21] MEDS: benzonatate 100 mg Capsule PO (08:49)
--- NOTE | 2021-07-21 09:56 | PC.CHAP ---
Pastoral Care Encounter/Spiritual Assessment Type of Contact [] Declined cell repairer visit [] Patient/Family/Request visit [] Outpatient visit [] Follow-up visit [] Physician referral [] Code/Alert [x] Routine visit [] Staff referral [] Actively dying [] Patient sleeping [x] Family support [] [] Out of room [] Palliative care [] [x] Receiving care in room [] Pre-surgical visit [] Trauma [] Long length of stay [x] ICU visit [x] Other: Relational/Emotional Strength [] Patient feels connected with others/family/visitors/staff [] Distress [] Loneliness/isolation [] Abandonment Spirituality of Patient [] Person of Natalya [] Attends Taoist of their Natalya [] Believes in Prayer [] Reads Bible or Sabianism materials [] There are Spiritual issues to be addressed Industrial Custodian Interventions [x] Prayer [] Active listening [] Non-anxious presence [] Spiritual/emotional support [] Crisis/trauma care [] Spiritual counseling [] Bereavement support [] Provided bereavement packet [] Provided Bible/devotional materials [] Provided toy/stuffed animal, coloring book to patient or family member [] Provided Communion [] Anointing/[place] [] Salvation [x] Completed spiritual assessment [] Other: Impact on Illness or Injury [] Angry [] Fearful [] Anxious [] Often cries [] Exhaustion [] Unable to work [] Unable to attend denominational [] Unable to walk/stand [] Unable to read [] Unable to drive [] Unable to eat/drink [] Unable to sleep [] Unable to be with family [] Patient intubated [] Other: Summary Time spent with patient
[2021-07-21] MEDS: acetaminophen 500 mg Tablet PO (10:28)
--- NOTE | 2021-07-21 11:44 | PM.DCS ---
Discharge Providers Date of Admission: 07/20/21 05:35 Date of Discharge: July 21, 2021 Attending Provider at Admission: Fransisco Lane MD Attending Provider at Discharge: Augusto Ortega MD Primary Care Provider: Pancho Carpenter MD Diagnoses at Discharge Discharge Diagnosis (1) Cerebrovascular accident: Status: Acute Qualifiers: CVA mechanism: unspecified Qualified Code(s): I63.9 - Cerebral infarction, unspecified (2) Received intravenous tissue plasminogen activator (tPA) in emergency department: Status: Acute Reason for Visit Reason for Visit: POSSIBLE STROKE Hospital Course Hospital Course Sami presented to the hospital with confusion, word finding difficulty. There was great concern that he was having a CVA. Emergency department called a stroke alert and neurology was contacted. TPA was given. Patient had no previous history of CVA. He was placed in the ICU for close monitoring. Initial CT of head was normal. CTA head and neck demonstrated no flow-limiting abnormalities. Statin was initiated. A follow-up CT was performed demonstrating no evidence of hemorrhage. Left MCA territory stroke noted. He did well with physical therapy and it was thought he could be discharged home on July 21. Outpatient he will get home health and home therapies. He will follow-up with neurology and his primary care provider. Cardiology referral will occur, and consideration of JELENA. Echo poor quality but otherwise normal. Event monitor will be arranged. Physical Exam Narrative: EXAM NARRATIVE: General exam no distress Neck supple Cardiovascular regular rate and rhythm(telemetry showed sinus rhythm all of his hospital stay) Lungs clear Abdomen is soft Extremities no sinus clubbing or edema Neurologic: Neglect right side, word finding difficulty noted. Discharge Data Data Completed and Pending: Completed Studies During Hospitalization Category Date Time Status CT angio headneck * 08431/04981 Urge nt Cat Scan 07/20/21 04:[address] head wo con* 7 0450 Routine Cat Scan 07/20/21 15:[address] head wo con* 7 0450 Stat Cat Scan 07/20/21 03:57 Completed XR chest 1V bradley ble [id number] Stat Exams 07/20/21 03:57 Completed Pending at discharge Category Date Time Status CV. echo complete * [id number] Routine Ultrasound 07/20/21 08:06 Taken Labs from last 24 hours 07/21/21 07/21/21 02:53 02:53 WBC 9.0 RBC 4.98 Hgb 14.2 Hct 43.7 MCV 87.8 MCH 28.5 MCHC 32.5 RDW 14.6 Plt Count 221 MPV 9.9 Neut % (Auto) 72.0 Lymph % (Auto) 21.0 Bureau % (Auto) 5.4 Eos % (Auto) 1.0 Baso % (Auto) 0.3 Neut # (Auto) 6.47 Lymph # (Auto) 1.9 Bureau # (Auto) 0.5 Eos # (Auto) 0.1 Baso # (Auto) 0.0 Nucleated RBC % (a uto) 0 Nucleated RBCs # 0.0 Sodium 138 Potassium 4.4 Chloride 104 Carbon Dioxide 23 Anion Gap 15.4 BUN 11 Creatinine 0.8 GFR Calculation 96.1 Glucose 119 H Calculated Osmolal ity 287 Calcium 8.3 L Vitals: Last Vital Signs Temp 98.1 F 07/21/21 09:00 Pulse 103 H 07/21/21 11:00 Resp 13 07/21/21 11:00 BP 127/97 07/21/21 11:00 Pulse Ox 92 07/21/21 10:30 Discharge Plan Discharge Patient Disposition: Home Health Service Condition: Stable Prescriptions: New atorvastatin 40 mg Tablet 80 mg PO DAILY Qty: 60 RF: 0 aspirin 81 mg Tablet,Delayed Release (Dr/Ec) 81 mg PO DAILY Qty: 30 RF: 0 clopidogrel 75 mg Tablet 75 mg PO DAILY Qty: 30 RF: 0 Discontinued ibuprofen 200 mg Tablet 400 - 800 mg PO Q4H PRN (Reason: Pain) RF: 0 Discharge Orders: Discharge Order (Routine); Ordered 07/21/21 Ordered By: Augusto Ortega Other Ambulatory Orders: CA cardiac event monitor (Routine) Timeframe: 1 Week Facility: [facility] - Location: Cardiac Diagnostic Laboratory Ordered By: Augusto Ortega Referrals: [facility] [Outside] (You have been accepted to [facility] services. They will be contacting you about a time to admit you to their services. If you have any questions please call them at [phone].) Isabel Hathaway MD [Physician] - 2 weeks (follow up CVA Monday07/26/21 at 9:15 AM) Pancho Carpenter MD [Primary Care Provider] - 7-10 days (August 04 at 2 PM) Kim Wellington FNP [Nurse Practitioner] - 7-10 days (History of CVA, follow-up to exclude arrhythmia and referral for JELENA scheduling) Discharge Diet: Low Cholesterol Discharge Activity: Increase activity as tolerated Patient Instructions: Stroke (DC), Opioid Safety Activity Restrictions/Additional Instructions: Take all meds as prescribed Keep appointment with your primary care physician as well as neurology Return for any concerns. Follow up appointment with Dr. Hathaway Thursday 07/26 at 9:15AM Follow up appointment with Dr. Carpenter 08/04/21 at 2 PM Discharge Attestations Time Spent in Discharge Care*: greater than 30 min Quality Metrics Clinical Quality Measures During this hospital stay, did patient experience: Stroke Contraindication to Antithrombotic: Antithrombotic prescribed Contraindication to Anticoagulation: Anticoagulation prescribed Contraindication to Statin: Statin prescribed Reason stroke education not provided: Stroke education provided to patient Coding Level of Care Code Acute Chg FW DC note Diagnoses Cerebrovascular accident I63.9 CVA mechanism: unspecified Received intravenous tissue plasminogen activator (tPA) in emergency department Z92.82
[2021-07-21] MEDS: aspirin 81 mg EC Tablet PO (11:58)
[2021-07-21] MEDS: clopidogrel 75 mg Tablet PO (11:58)
--- NOTE | 2021-07-21 13:21 | PC.NURSE ---
Pt education and fu appointments given. IV dc'd and pt wheeled out to personal vehicle with and all belongings.
== END 2021-07-21 13:15 | disposition home health service (06) ==
LOC: ER 05:36 → ICU 06:10
PROVIDERS: Admitting Provider Internal Medicine; Emergency Provider Emergency Medicine; PCP Family Medicine; Visit Provider Internal Medicine
DX: I63.9 Cerebral infarction, unspecified (principal); R29.701 NIHSS score 1; E04.1 Nontoxic single thyroid nodule
CPT/HCPCS: 36415; 36416; 70450; 70496; 70498; 71045; 80048; 80053; 81001; 82962; 85025; 85610; 85730; 90471; 90732; 92507; 92523; 92610; 93005; 93306; 96374; 96375; 97162; 97165; 99285; G0378; J2405; J2997; Q9967

== ENCOUNTER → 2021-07-26 09:15 | Outpatient (BNVA) | payer MEDICARE, OTHER, SELFPAY | PROVIDERS: PCP Family Medicine; Visit Provider Specialist | DX: I69.320 Aphasia following cerebral infarction (principal); G43.909 Migraine, unspecified, not intractable, without status migrainosus; I69.398 Other sequelae of cerebral infarction; Z87.891 Personal history of nicotine dependence | CPT/HCPCS: 96116; 99204; 99205; 99214 ==

== ENCOUNTER → 2021-08-30 11:36 | Outpatient (BNVA) | payer MEDICARE, OTHER, SELFPAY | PROVIDERS: PCP Family Medicine; Visit Provider Specialist | DX: I69.320 Aphasia following cerebral infarction (principal); G31.84 Mild cognitive impairment of uncertain or unknown etiology; G47.33 Obstructive sleep apnea (adult) (pediatric) | CPT/HCPCS: 96116; 99214 ==

== ENCOUNTER → 2021-10-04 17:09 | Outpatient (BNVA) | payer MEDICARE, OTHER, SELFPAY | PROVIDERS: PCP Family Medicine; Referring Provider Internal Medicine; Visit Provider Internal Medicine | DX: I63.512 Cerebral infarction due to unspecified occlusion or stenosis of left middle cerebral artery (principal); Z20.822 Contact with and (suspected) exposure to COVID-19 | CPT/HCPCS: 87635 ==

== ENCOUNTER 2021-10-08 10:59 | Day surgery (SDC) | payer MEDICARE, OTHER, SELFPAY ==
[2021-10-05 15:30] VITALS: BMI 33.9
[2021-10-08 11:38] VITALS: BP 134/84; PULSE 80; RESP 18; TEMP 36.9; O2SAT 93
--- NOTE | 2021-10-08 11:41 | P.ANESASSM_ITS ---
Pre-Anesthetic Assessment Height/Weight: Height 1.83 m Weight 113.398 kg Operation Date: 10/08/21 12:00 Proposed Procedures p JELENA(Not Applicable) - Iraj Tucker M.D Familial anesthetic complications: None Was Beta Richard taken within 24 hours: N/A Was Clonidine taken within 24 hours: N/A Social No alcohol and No tobacco Exam alert, oriented x 3, clear to auscultation bilaterally and regular rate & rhythm Airway Submandibular: within normal limits Cervical ROM: within normal limits Mallampati: Class II Dentition: false Neuropsych Cerebrovascular Accident (Right sided) Anesthetic Plan ASA status: 3 Anesthesia: MAC Medications/Allergies Home Medications Medication Instructions Recorded Confirmed Last Taken Type aspirin 81 mg tablet,delayed 81 mg PO DAILY #30 tab 07/21/21 10/08/21 10/07/21 Rx release atorvastatin 40 mg tablet 80 mg PO DAILY #60 tab 07/21/21 10/08/21 10/07/21 Rx clopidogrel 75 mg tablet 75 mg PO DAILY #30 tab 07/21/21 10/08/21 10/07/21 Rx B-complex with vitamin C 1 cap PO DAILY 10/05/21 10/08/21 10/07/21 History ascorbate aaxdsqg-pmrssyup-nxx 1 ea PO DAILY 10/05/21 10/08/21 10/07/21 History 1,000 mg oral powder effervescent pakt (Vit C(ascorb.calcium)(mv-mins)) elderberry fruit 200 mg capsule 200 mg PO DAILY 10/05/21 10/08/21 10/07/21 History unzdrstafkcs-rsp-dzbtn acid-vit 1 tab PO DAILY 10/05/21 10/08/21 10/07/21 History K-lycop 400 mcg-20 mcg-370 mcg tablet (One-A-Day Men's 50 Plus) vitamin D3 25 mcg-vitamin K2 20 1 cap PO DAILY 10/05/21 10/08/21 10/07/21 History mcg-olive leaf extract 250 mg capsule Allergies Allergy/AdvReac Type Severity Reaction Status Date / Time adhesive Allergy ALGY-Bliste Verified 10/05/21 15:23 r lidocaine Allergy ADR-Faintin Verified 10/07/21 09:46 g [facility] Anesthesia Medical History Left acute arterial ischemic stroke, MCA (middle cerebral artery) Skin cancer (melanoma) Surgical History H/O melanoma excision Family History Other Cancer Social History Alcohol intake: never Household members: spouse Housing: House Data Anesthesia Cardiac Studies: Echocardiogram 07/20/21 Cardiac Event Monitor 07/27/21
--- NOTE | 2021-10-08 11:48 | USCV_ITS ---
Sami Hinojosa Age: 66 Gender: M : 1955 Exam Date: 10/08/2021 12:00 Ordering Phys: Iraj Tucker M.D ([email or web address]) Technologist: Shira Magallanes Exam Location: [facility] – [place] Indication: CVA BP: / HR: Rhythm: Sinus Technical Quality: Good MEASUREMENTS (Male / Female) Normal Values Medications Complications None Proc. Components After patient was sedated by anesthesia team, JELENA probe was introduced. FINDINGS Left Ventricle LV systolic function is normal with EF of 55-60% Right Ventricle Normal in size and function Right Atrium Grossly normal Left Atrium Grossly normal LA Appendage No thrombus noted IA Septum Aneurysmal. Possible small sized PFO noted with small shunt from right to left on bubble injection Mitral Valve Normal. Trace Mitral regurgitation Aortic Valve Tricuspid aortic valve. Right coronary cusp is thickened Tricuspid Valve Normal Pulmonic Valve Not well visualized Pericardium Normal Aorta Mild atherosclerotic plaque is seen CONCLUSIONS LV systolic function is normal with EF of 55-60% No Left atrial appendage thrombus seen Interatrial septum is aneurysmal. Possible small sized PFO noted with small shunt from right to left on bubble injection No gross valvular abnormalities seen Iraj Tucker MD (Electronically Signed) Final Date: 19 October 2021 11:24 S
[2021-10-08] MEDS: sodium chloride 0.9% 1,000 ML 30 ML IV (11:49)
--- NOTE | 2021-10-08 11:59 | W.PM.OPSFHP ---
Same Day Surgery H&P Indication for Procedure/HPI DATE OF PROCEDURE: October 08, 2021 CHIEF COMPLAINT/INDICATIONFOR SURGICAL PROCEDURE: Cryptogenic stroke/poor quality transthoracic echocardiogram PREOP DIAGNOSIS: Cryptogenic stroke/poor quality transthoracic echocardiogram PLANNED PROCEDURE: Operation Date: 10/08/21 12:00 Proposed Procedures p JELENA(Not Applicable) - Iraj Tucker M.D ?66 year old man with PMH of recent CVA with speech difficulty, dyspnea on exertion. Transthoracic echocardiogram was of limited quality. Stroke was cryptogenic. Event monitor did not reveal significant arrhythmias. Per recommendation from neurology, we will proceed with transesophageal echocardiogram. ROS CONSTITUTIONAL: No fever chills weight loss or gain or night sweats. [] HEENT: Normocephalic, atraumatic.[] RESPIRATORY: No cough, sputum, hemoptysis or wheezing.[] CARDIOVASCULAR: No shortness of breath, chest pain, PND, orthopnea, lower extremity edema, presyncope or syncope. [] GI: no nausea vomiting diarrhea. [] TOOL PROFILING MACHINE SET UP OPERATOR: No numbness, tingling, weakness or loss of function in any part of the body. [] MUSCULOSKELETAL: No knee or joint pain or rashes. [] Medications/Allergies* Home Medications Medication Instructions Recorded Confirmed Type B-complex with vitamin C 1 cap PO DAILY 10/05/21 10/08/21 History ascorbate hoyormv-nwsofyqc-sab 1 ea PO DAILY 10/05/21 10/08/21 History 1,000 mg oral powder effervescent pakt (Vit C(ascorb.calcium)(mv-mins)) elderberry fruit 200 mg capsule 200 mg PO DAILY 10/05/21 10/08/21 History tocvhjphvlku-dar-zbxdw acid-vit 1 tab PO DAILY 10/05/21 10/08/21 History K-lycop 400 mcg-20 mcg-370 mcg tablet (One-A-Day Men's 50 Plus) vitamin D3 25 mcg-vitamin K2 20 1 cap PO DAILY 10/05/21 10/08/21 History mcg-olive leaf extract 250 mg capsule Allergies/Adverse Reactions Allergy/AdvReac Type Severity Reaction Status Date / Time adhesive Allergy ALGY-Bliste Verified 10/05/21 15:23 r lidocaine Allergy ADR-Faintin Verified 10/07/21 09:46 g Current Medications: Generic Name Dose Route Start Last Admin Trade Name Freq PRN Reason Stop Dose Admin Sodium Chloride 1,000 mls @ 30 mls/hr 10/08/21 10:30 10/08/21 11:49 Sodium Chloride 0.9% IV 10/09/21 10:29 30 mls/hr .Q24H DARIUS Administration Pertinent History/Comorbid Conditions* Medical History (Updated 08/30/21 @ 13:49 by Isabel Hathaway MD) Left acute arterial ischemic stroke, MCA (middle cerebral artery) Skin cancer (melanoma) Surgical History (Updated 07/20/21 @ 06:[address] MD) H/O melanoma excision Family History (Updated 07/20/21 @ 06:[address] MD) Cancer Social History Alcohol intake: never Household members: spouse Housing: House Pertinent Exam Findings alert, oriented x 3, clear to auscultation bilaterally and regular rate & rhythm Recommendations Surgery/Procedure today (Transesophageal echocardiogram) Coding Level of Care Code Acute Portable Grinding Machine Operator for Loraine Magana
[2021-10-08 12:32] VITALS: BP 110/71; PULSE 93; RESP 20; TEMP 36.9; O2SAT 92
[2021-10-08 12:45] VITALS: BP 111/79; PULSE 79; RESP 18; O2SAT 91
--- NOTE | 2021-10-08 14:11 | ANE.PACU2 ---
Inpatient post-anesthesia follow up: Airway intact: Yes Vital signs: Temperature 98.5 F Pulse Rate 79 Respiratory Rate 18 Blood Pressure 111/79 Pulse Oximetry 91 Oxygen Delivery Me thod Room Air Oxygen Flow Rate 8 Fraction of Inspir ed Oxygen Hydration adequate: Yes Nausea and vomiting: No Pain level: 1 Mental status: Baseline
== END 2021-10-08 13:00 | disposition home or self-care (01) ==
PROVIDERS: PCP Family Medicine; Visit Provider Internal Medicine
PROC: (CPT 93312; principal; 2021-10-08 11:00)
DX: I69.891 Dysphagia following other cerebrovascular disease (principal); R06.00 Dyspnea, unspecified; Z79.82 Long term (current) use of aspirin
CPT/HCPCS: 93312; 93320; 93325; J2370; J2704; J7030

== ENCOUNTER 2021-12-21 13:47 | Outpatient (CLI) | payer MEDICARE, OTHER, SELFPAY ==
--- NOTE | 2021-12-21 13:45 | MR_ITS ---
WS: [id number] MRI HEAD WITH CONTRAST TECHNIQUE: Sagittal T1, T2 axial, T2 axial FLAIR, axial susceptibility weighted imaging, axial diffus ion weighted images, and coronal T2 images were obtained. Pre and post-T1 axial and post T1 coronal i mages. ADC and FSPGR images. CLINICAL INFORMATION: CVA, WORSENING SYMPTOMS COMPARISON: CT July 20, 2021 FINDINGS: No evidence of restricted diffusion to suggest acute ischemia. Ventricular system and basal cisterns are patent. Chronic infarct LEFT MCA territory with evidence of encephalomalacia and gliosis involvin g the LEFT temporal lobe and LEFT parietal lobe. This was present July 20, 2021. Associated chron ic hemosiderin in the areas of chronic infarct. No evidence of increasing edema or mass effect. Mild ex vacuo dilatation LEFT lateral ventricle. Normal posterior fossa. Normal vascular flow voids a t the skull base. No extra-axial fluid collections. Partial opacification of the ethmoid air cells. M astoid air cells are well aerated. Normal posterior nasopharynx. Small area of subcortical chronic is chemia in the LEFT frontal lobe anteriorly. Normal optic chiasm and pituitary infundibulum. Temporal lobes and hippocampal formations are normal in appearance. Normal cavernous sinuses and Meckel's cave. No abnormal gadolinium enhancement. Normal visualized dural venous sinuses. MR/MR head wo/w con [id number] IMPRESSION: 1. No evidence of restricted diffusion to suggest acute ischemia. 2. Moderate small vessel changes with moderate parenchymal volume loss 3. Chronic infarcts involving the LEFT MCA territory with chronic areas of ass ociated hemosiderin. 4. Associated encephalomalacia and gliosis involving the LEFT temporal lobe an d LEFT posterior parietal lobe in the areas of prior infarct. 5. No abnormal gadolinium enhancement. 6. Normal optic chiasm and pituitary infundibulum. 7. No other significant findings.
== END 2021-12-21 13:48 | disposition home or self-care (01) ==
PROVIDERS: PCP Family Medicine; Visit Provider Family Medicine
DX: I63.9 Cerebral infarction, unspecified (principal)
CPT/HCPCS: 70553

== ENCOUNTER → 2021-12-27 09:25 | Outpatient (BNVA) | payer MEDICARE, OTHER, SELFPAY | PROVIDERS: PCP Family Medicine; Visit Provider Specialist | DX: I69.320 Aphasia following cerebral infarction (principal); I69.398 Other sequelae of cerebral infarction; R51.9 Headache, unspecified; Q21.1 Atrial septal defect | CPT/HCPCS: 99214 ==

== ENCOUNTER 2022-02-01 16:00 | Outpatient (CLI) | payer MEDICARE, OTHER, SELFPAY | END 2022-02-01 16:01 | disposition home or self-care (01) | LOC: SLEEP 02-02 16:07 | PROVIDERS: PCP Family Medicine; Visit Provider Family Medicine | DX: G47.33 Obstructive sleep apnea (adult) (pediatric) (principal) | CPT/HCPCS: G0399 ==

== ENCOUNTER 2022-03-15 15:43 | Outpatient (CLI) | payer MEDICARE, OTHER, SELFPAY ==
[2022-03-15 16:19] LABS: Basophils % 0.5 %; Eosinophils # 0.3 10^3/uL (0.0-0.8); Eosinophils % 3.9 %; Hematocrit 42.6 % (42.0-52.0); Hemoglobin 13.6 g/dL (11.7-16.6); Lymphocytes # 3.3 10^3/uL (0.8-4.8); Lymphocytes % 40.5 %; Mean Corpuscular HGB Conc 31.9 g/dL (30.0-36.0); Mean Corpuscular Volume 87.7 fl (80-94); Mean Platelet Volume 9.8 fL (7.4-10.4); Monocytes # 0.6 10^3/uL (0.2-0.9); Monocytes % 7.4 %; Neutrophils # 3.85 10^3/uL (1.8-7.7); Neutrophils % 47.3 %; Nucleated Red Blood Cells % 0 %; Platelet Count 214 10^3/cmm (130-400); Red Blood Count 4.86 10^6/uL (4.1-5.3); Red Cell Distribution Width 14.2 % (12.1-15.1); White Blood Count 8.1 10^3/uL (4.0-10.0)
[2022-03-15 16:52] LABS: Anion Gap 15.2 (5-19); Blood Urea Nitrogen 15 mg/dL (8-23); Calcium 8.6 mg/dL (8.5-10.5); Carbon Dioxide 25 mmol/L (22-29); Chloride 104 mmol/L (98-107); Glomerular Filtration Rate 83.7 mL/min (90-130); Glucose 90 mg/dL (65-115); Osmolality Calculated 290 mOsm/kg (285-295); Potassium 4.2 mmol/L (3.5-5.1); Sodium 140 mmol/L (136-145)
[2022-03-15 19:17] LABS: INR 0.94 (0.83-1.21); Prothrombin Time (Patient) 12.9 Seconds (12.0-15.1)
== END 2022-03-15 15:44 | disposition home or self-care (01) ==
LOC: LAB 15:46
PROVIDERS: PCP Family Medicine; Visit Provider Internal Medicine
DX: I63.9 Cerebral infarction, unspecified (principal); R58 Hemorrhage, not elsewhere classified
CPT/HCPCS: 36415; 80048; 85025; 85610; 86850; 86900

== ENCOUNTER 2022-03-21 06:07 | Outpatient (CLI) | payer MEDICARE, OTHER, SELFPAY ==
[2022-03-21 06:29] VITALS: BP 166/86; PULSE 70; RESP 16; TEMP 36.6; O2SAT 96; BMI 37.3
--- NOTE | 2022-03-21 07:12 | P.HP_ITS ---
Providers/Chief Complaint Admitting Physician: DILEEP Hassan Primary Care Provider: Pancho Carpenter MD Chief Complaint: [id number] i63.9 History of Present Illness Sami Hinojosa is a 67 year old male with no significant past medical history, had a recent stroke. He was evaluated by neurology. He was found to have a PFO by echocardiogram. He was referred to Dr. Epperson at the [facility] for possible PFO closure. Dr. Epperson recommended an implantable cardiac cath technician to rule out atrial fibrillation, causing the stroke. Review of Systems Narrative: CONSTITUTIONAL: No fever or chills. EYES: No blurring of vision or other visual disturbances lately. ENT: No hoarseness of voice, auditory disturbances or sore throat. CARDIOVASCULAR: History of patent foramen ovale RESPIRATORY: No significant cough. GASTROINTESTINAL: No hematemesis or melena. GENITOURINARY: No dysuria or hematuria. INTEGUMENTARY: No skin rashes or history of skin cancer. NEURO: Patient has some expressive aphasia PSYCHIATRIC: No history of psychosis or major depression. HEMATOLOGIC: No bleeding disorders or significant anemia. ENDOCRINE: No history of polyuria or polydipsia. MUSCULOSKELETAL: No recent joint pain or swelling. ALLERGY/IMMUNOLOGY: As mentioned above. Medications/Allergies Home Medications Medication Instructions Recorded Confirmed Last Taken Type aspirin 81 mg tablet,delayed 81 mg PO DAILY #30 tab 07/21/21 03/21/22 03/19/22 22:00 Rx release B-complex with vitamin C 1 cap PO DAILY 10/05/21 03/21/22 10/07/21 History ascorbate szwtydb-oexcnrfm-xgy 1 ea PO DAILY 10/05/21 03/21/22 10/07/21 History 1,000 mg oral powder effervescent pakt (Vit C(ascorb.calcium)(mv-mins)) elderberry fruit 200 mg capsule 200 mg PO DAILY 10/05/21 03/21/22 10/07/21 History ukitneccvxri-gky-wqnfi acid-vit 1 tab PO DAILY 10/05/21 03/21/22 10/07/21 History K-lycop 400 mcg-20 mcg-370 mcg tablet (One-A-Day Men's 50 Plus) apixaban 5 mg tablet (Eliquis) 5 mg PO BID 03/21/22 03/21/22 03/19/22 22:00 History Allergies Allergy/AdvReac Type Severity Reaction Status Date / Time adhesive Allergy ALGY-Bliste Verified 10/11/21 13:29 r lidocaine Allergy ADR-Faintin Verified 10/11/21 13:29 g PFSH Acute PFSH: Medical History Left acute arterial ischemic stroke, MCA (middle cerebral artery) Skin cancer (melanoma) Surgical History H/O melanoma excision Family History Other Cancer Social History Smoking and tobacco status: never smoked Alcohol intake: current Alcohol intake frequency: holidays/special occasions only Household members: spouse Housing: House Vitals/I&O/Wt Last Vital Signs Temp 97.9 F 03/21/22 06:29 Pulse 70 03/21/22 06:29 Resp 16 03/21/22 06:29 BP 166/86 03/21/22 06:29 Pulse Ox 96 03/21/22 06:29 Weight last 48 hrs Weight 275 lb Physical Exam Narrative: GENERAL: The patient is alert and oriented times three. Not in any acute distress. Morbidly obese HEENT: No significant pallor, icterus or lymphadenopathy.Oral cavity: There are no mucous membrane lesions. NECK: Trachea appears to be central. No masses noted. No JVD or thyromegaly appreciated. RESPIRATORY: Chest is symmetrical. No intercostals muscle retraction or any accessory muscle activation. There is no chest wall tenderness. Breath sounds are heard bilaterally. No rales or rhonchi heard. No evidence of any consolidation. BREASTS: Deferred. HEART: The heart sounds are normal. No S3 or S4. No significant murmurs. No pericardial rub ABDOMEN: No vessel pulsations or distention. No tenderness. No organomegaly appreciated. Bowel sounds are normally heard. : Deferred. RECTAL: Deferred. LYMPHATIC: No lymphadenopathy noted in the neck. EXTREMITIES: No edema or cyanosis. No clubbing. MUSCULOSKELETAL: No acute joint deformities or swelling SKIN: There are no significant rashes or ecchymosis NEUROPSYCHIATRIC: The patient is alert and oriented x3. Appears to be in a good mood. No tremors or rigidity noted. GENERAL: The patient is alert and oriented times three. Not in any acute distress. A&P Assessment and plan (1) Cryptogenic stroke: We will go ahead and do a loop recorder implant to evaluate for any atrial fibrillation. This procedure was discussed with the patient in detail. The risk of bleeding, infection, and other concomitant complications were explained in detail which is understood well and consented to proceed. Status: Acute (2) PFO (patent foramen ovale): Management Dr. Epperson in [place], [place]. Status: Acute Plan We will go ahead and do the implantable cardiac cath technician insertion today. Patient will be given 2 g of Keflex for prophylaxis. Attestations Medical Necessity Statement*: Discharge home after the procedure Coding Level of Care Code Acute Certified Ophthalmic Surgical Assistant for Chg Fwd Exam Expanded Problem Focused Medical Decision Making Low Complexity Diagnoses Cryptogenic stroke I63.9 PFO (patent foramen ovale) Q21.1
--- NOTE | 2022-03-21 07:36 | PM.OP ---
Operative Report Date of procedure: March 21, 2022 Pre-op diagnosis: Preop Diagnosis Cryptogenic stroke/poor quality transthoracic echocardiogram Procedure: Date of Procedure: 03/21/2022 Name of the procedure: IMPLANTABLE CHILDHOOD DEVELOPMENT TEACHER INSERTION LOCATION: [facility] REFERRING PROVIDER: Dr. Tucker PREOPERATIVE DIAGNOSIS: Cryptogenic stroke POSTOPERATIVE DIAGNOSIS: Same. ESTIMATED BLOOD LOSS: None COMPLICATIONS: None. BRIEF HISTORY: Patient presented with features of a cryptogenic stroke. He had an event monitor which didn't reveal any significant arrhythmias to explain the symptoms. For further evaluation, an implantable monitoring engineer was recommended PROCEDURE: The procedure was explained to the patient in detail with the risks and benefits. The risk of bleeding, hematoma, vascular injury, infection and other concomitant complications were explained in detail. The patient understood this well and consented to proceed. [facility] The left side of the chest was cleaned and draped in a sterile fashion. 1% Xylocaine was used as local anesthetic agent. An incision was made in the left fourth intercostal space. Making use of the application device, the implantable monitoring engineer was inserted, subcutaneously. 5 minutes of manual pressure was applied, at the puncture site. The patient tolerated the procedure very well and there were no complications. No bleeding or hematoma. Steri-Strips were applied over the insertion site followed by a sterile dressing. IMPLANTED DEVICE Reveal LINQ Model number: [id number] Serial number: [id number] Make: 6Scan Parameters: Standard settings were applied-symptom recording for 7.5 minutes. Tachyarrhythmia detection for heart rate greater /equal to 140 bpm ;pause detection for more than 3 seconds, bradycardia detection of less than 40 bpm; the A. fib detection was turned on The R wave sensing was 0.24 mV The patient was given the Gemvara patient monitor-model #02344. The serial number [id number]
[2022-03-21] MEDS: cephALEXin 500 mg Capsule 2000 MG PO (07:40)
[2022-03-21 08:34] VITALS: BP 147/83; PULSE 66; RESP 18; O2SAT 95
== END 2022-03-21 06:08 | disposition home or self-care (01) ==
PROVIDERS: PCP Family Medicine; Visit Provider Internal Medicine Cardiovascular Disease
PROC: (CPT 33285; principal; 2022-03-21 07:00)
DX: I63.9 Cerebral infarction, unspecified (principal); Q21.1 Atrial septal defect; Z79.82 Long term (current) use of aspirin
CPT/HCPCS: 33285; C1764; C1769

== ENCOUNTER → 2022-07-18 10:33 | Outpatient (BNVA) | payer MEDICARE, OTHER, SELFPAY | PROVIDERS: PCP Family Medicine; Visit Provider Specialist | DX: I69.320 Aphasia following cerebral infarction (principal); G47.33 Obstructive sleep apnea (adult) (pediatric); Q21.12 Patent foramen ovale; R51.9 Headache, unspecified | CPT/HCPCS: 99213 ==

== ENCOUNTER 2022-09-16 19:05 | Observation (INO) | payer MEDICARE, OTHER, SELFPAY ==
[2022-09-16 19:09] VITALS: BP 155/87; PULSE 113; RESP 16; TEMP 36.4; O2SAT 91; BMI 34.9
--- NOTE | 2022-09-16 19:31 | ED_ITS ---
HPI - Altered Mental Status General: Chief Complaint: Altered Mental Status Stated Complaint: AMS Time Seen by Provider: 09/16/22 19:31 History of Present Illness: Mr. Hinojosa is a 67-year-old gentleman with significant past medical history of PFO, stroke, residual expressive aphasia presented to the emergency department for altered mental status with strokelike symptoms. He apparently was at his baseline health and had onset of symptoms approximately 530 he began having more difficulty speaking and also reporting some left arm paresthesias. Family has noticed some urinary incontinence associated with this and he also endorses new headache. Intensity symptoms mild. Course has persisted. These are similar symptoms to with his prior stroke. No other specific changes in health, exacerbating, or alleviating factors identified. Patient is on Eliquis Onset (ago): hour(s) Severity: mild Consistency of symptoms: Constant Context: history of similar presentation Associated symptoms: Reports other Review of Systems General: Reports: 10 or more systems reviewed and unremarkable except in HPI and below PFSH ED 2 PFSH: Medical History Encephalomalacia Left acute arterial ischemic stroke, MCA (middle cerebral artery) Skin cancer (melanoma) Surgical History H/O melanoma excision Family History Other Cancer Social History Smoking and tobacco status: never smoked Alcohol intake: current Alcohol intake frequency: holidays/special occasions only Household members: spouse Housing: House Physical Exam Const: COMMON NORMALS: patient oriented x3 and alert GENERAL APPEARANCE: cooperative and well developed HENMT: COMMON NORMALS: normocephalic and atraumatic HEAD & SCALP: normocephalic and atraumatic THROAT: posterior oropharynx normal Eye: COMMON NORMALS: conjunctivae normal CONJUNCTIVA: Yes conjunctivae normal SCLERA: sclerae normal Neck/C-Spine: COMMON NORMALS: supple GENERAL: Yes trachea midline Resp: COMMON NORMALS: normal respiratory effort EFFORT & INSPECTION: Yes able to speak in complete sentences Cardio: COMMON NORMALS: regular rate and regular rhythm RATE: regular rate RHYTHM: regular rhythm GI: COMMON NORMALS: Soft to palpation PALPATION: Yes Soft to palpation and No Tenderness to palpation present (GI) PERCUSSION: normal to percussion Extremity: GENERAL: Yes normal exam except as noted and No edema Neuro: COMMON NORMALS: patient oriented x3, CN's II-XII intact bilaterally, moves all extremities, no focal motor deficits, no sensory deficits noted and gait normal SENSORIUM/ORIENTATION: Yes alert and No Orientation impaired OTHER: Mild receptive aphasia. NIHSS 1. Reportedly baseline. Psych: COMMON NORMALS: mental status grossly normal and Normal thought process present THOUGHT PROCESS: Normal thought process present Course Vital Signs: Vital signs: Vital Signs Temperature 97.6 F 09/17/22 17:07 Pulse Rate 74 09/17/22 17:07 Respiratory Rate 18 09/17/22 17:07 Blood Pressure 129/81 09/17/22 17:07 Pulse Oximetry 92 09/17/22 17:07 Oxygen Delivery Me thod 09/17/22 12:00 MDM - Altered Mental Status Medical Decision Making 67-year-old gentleman presenting with increased forgetfulness and memory labs from earlier today. Patient has a history of stroke with residual receptive aphasia. No other obvious neurologic deficits appreciated on clinical exam. EKG notable for sinus rhythm with nonspecific ST segment abnormalities, normal intervals, no STEMI. Labs notable for leukocytosis, normal hemoglobin and platelet count. Metabolic panel without acute derangement to explain symptoms. Weakness and prior leukocytosis is new. Mild hematuria without significant evidence of infection on urinalysis. Toxic ingestions negative. Rapid viral testing also negative. Chest x-ray with no lobar consolidation or pneumothorax. Head CT negative for acute intracranial hemorrhage or mass. Prior infarct evidence present. CTA negative for large vessel occlusion or critical stenosis. I reviewed prior imaging including MRI, CT imaging, chest x-ray. Upon reassessment patient is similar. Patient feels mildly improved with IV fluids and analgesia for headache. The exact likely etiology of patient symptoms is unclear, may be transient ischemic attack or other neurologic event such as seizure without history of similar. Given this event and clinical history of believe that it is reasonable to admit the patient for observation and further evaluation. The results of ED evaluation were discussed with the patient including plan for admission due to requirement for level of care not available if discharged to prevent significant worsening/deterioration. Patient agreeable with plan. Discussed with hospitalist service who was agreeable to admit patient. Medical Records I reviewed the patient's medical records. Lab Data I reviewed the patient's lab results. 09/16/22 19:52 09/16/22 19:52 Radiology Impressions Chest X-Ray 09/16/22 19:38 IMPRESSION: No acute findings. Head/Neck CTA 09/16/22 19:38 IMPRESSION: No large vessel stenosis or occlusion. IMPRESSION: No stenosis or occlusion. REFERENCES: NASCET CRITERIA. The degree of stenosis in the cervical segment of the internal carotid artery is based on NASCET criteria. Normal is no stenosis. Mild is less than 50% stenosis. Moderate is 50-69% stenosis. Severe is 70% to 99% stenosis. Total occlusion is no detectable patent lumen. Head CT 09/16/22 19:42 IMPRESSION: 1. No acute intracranial abnormality. 2. Patulous areas of encephalomalacia from old infarcts in the left frontal, parietal, and temporal lobes. Shoulder X-Ray 09/16/22 23:54 IMPRESSION: 1. No acute fracture or dislocation. 2. Other findings discussed above. Venous Duplex 09/17/22 01:38 IMPRESSION: 1. No evidence of acute right lower extremity DVT. 2. No evidence of acute left lower extremity DVT. Shoulder CT 09/17/22 10:15 IMPRESSION: 1. Evidence of recent posterior displacement/dislocation of the left humeral head. There are acute fractures at the medial aspect of the humeral head and at the posterosuperior margin of the glenoid process of the scapula. 2. Moderate hemarthrosis. 3. If additional imaging is clinically indicated, MRI may be helpful to evaluate for associated soft tissue injury. Laboratory Results WBC 16.1 10^3/uL (4.0-10.0) H 09/16/22 19:52 RBC 4.98 10^6/uL (4.1-5.3) 09/16/22 19:52 Hgb 13.9 g/dL (11.7-16.6) 09/16/22 19:52 Hct 42.1 % (42.0-52.0) 09/16/22 19:52 MCV 84.5 fl (80-94) 09/16/22 19:52 MCH 27.9 pg (28.0-34.0) L 09/16/22 19:52 MCHC 33.0 g/dL (30.0-36.0) 09/16/22 19:52 RDW 13.8 % (12.1-15.1) 09/16/22 19:52 Plt Count 228 10^3/cmm (130-400) 09/16/22 19:52 MPV 9.5 fL (7.4-10.4) 09/16/22 19:52 Neut % (Auto) 87.7 % 09/16/22 19:52 Lymph % (Auto) 6.0 % 09/16/22 19:52 [place] % (Auto) 5.5 % 09/16/22 19:52 Eos % (Auto) 0.1 % 09/16/22 19:52 Baso % (Auto) 0.2 % 09/16/22 19:52 Neut # (Auto) 14.08 10^3/uL (1.8-7.7) H 09/16/22 19:52 Lymph # (Auto) 1.0 10^3/uL (0.8-4.8) 09/16/22 19:52 [place] # (Auto) 0.9 10^3/uL (0.2-0.9) 09/16/22 19:52 Eos # (Auto) 0.0 10^3/uL (0.0-0.8) 09/16/22 19:52 Baso # (Auto) 0.0 10^3/uL (0.0-0.1) 09/16/22 19:52 Nucleated RBC % (auto) 0 % 09/16/22 19:52 Nucleated RBCs # 0.0 /100WBC 09/16/22 19:52 ESR 4 mm/hr (0-10) 09/16/22 19:52 Sodium 138 mmol/L (136-145) 09/16/22 19:52 Potassium 3.9 mmol/L (3.5-5.1) 09/16/22 19:52 Chloride 104 mmol/L (98-107) 09/16/22 19:52 Carbon Dioxide 26 mmol/L (22-29) 09/16/22 19:52 Anion Gap 11.9 (5-19) 09/16/22 19:52 BUN 16 mg/dL (8-23) 09/16/22 19:52 Creatinine 1.0 mg/dL (0.7-1.2) 09/16/22 19:52 GFR Calculation 74.1 mL/min (90-130) L 09/16/22 19:52 Glucose 186 mg/dL (65-115) H 09/16/22 19:52 Calculated Osmolality 292 mOsm/kg (285-295) 09/16/22 19:52 Calcium 9.6 mg/dL (8.5-10.5) 09/16/22 19:52 Magnesium 2.0 mg/dL (1.7-2.3) 09/16/22 19:52 Total Bilirubin 0.3 mg/dL (0.15-1.2) 09/16/22 19:52 AST 13 U/L (0-40) 09/16/22 19:52 ALT 16 U/L (0-41) 09/16/22 19:52 Alkaline Phosphatase 106 U/L (40-130) 09/16/22 19:52 Troponin T Baseline 10 ng/L (0-15) 09/16/22 19:52 Troponin T 120 Minute 11.79 ng/L (0-15) 09/16/22 21:52 Delta Troponin T 1.79 ABS# (0-10) 09/16/22 21:52 C-Reactive Protein 3.0 mg/L (0.0-4.9) 09/16/22 19:52 Total Protein 6.5 g/dL (6.6-8.7) L 09/16/22 19:52 Albumin 4.0 g/dL (3.5-5.2) 09/16/22 19:52 Globulin 2.5 g/dL (1.3-4.6) 09/16/22 19:52 Procalcitonin 0.02 ng/mL (0-0.5) 09/16/22 19:52 TSH 0.68 uIU/mL (0.27-4.20) 09/16/22 19:52 Urine Color Yellow (Yellow) 09/16/22 22:15 Urine Appearance Clear (CLEAR) 09/16/22 22:15 Urine pH 6.5 (5-7) 09/16/22 22:15 Ur Specific [place] 1.020 (1.005-1.030) 09/16/22 22:15 Urine Protein Neg (Negative) 09/16/22 22:15 Urine Glucose (UA) Trace (Normal) H 09/16/22 22:15 Urine Ketones 1+ (Negative) H 09/16/22 22:15 Urine Blood 2+ (Negative) H 09/16/22 22:15 Urine Nitrate Negative (Negative) 09/16/22 22:15 Urine Bilirubin Neg (Negative) 09/16/22 22:15 Urine Urobilinogen Neg mg/dL (Negative) 09/16/22 22:15 Ur Leukocyte Esterase Negative (Negative) 09/16/22 22:15 Urine RBC 0-4 /hpf (0-2) H 09/16/22 22:15 Urine WBC 0-4 /hpf (0-5) H 09/16/22 22:15 Ur Squamous Epith Cells 0-4 /hpf (0-5) H 09/16/22 22:15 Amorphous Sediment Not Reportable 09/16/22 22:15 Urine Bacteria None /hpf (NONE) 09/16/22 22:15 Urine Mucus Trace /hpf 09/16/22 22:15 Urine Opiates Screen Negative ng/mL (Negative) 09/16/22 22:15 Ur Barbiturates Screen Negative ng/mL (Negative) 09/16/22 22:15 Ur Phencyclidine Scrn Negative ng/mL (Negative) 09/16/22 22:15 Ur Amphetamines Screen Negative ng/mL (Negative) 09/16/22 22:15 U Benzodiazepines Scrn Negative ng/mL (Negative) 09/16/22 22:15 Urine Cocaine Screen Negative ng/mL (Negative) 09/16/22 22:15 U Marijuana (THC) Screen Positive ng/mL (Negative) H 09/16/22 22:15 Influenza Type A Ag negative (Negative) 09/16/22 21:30 Influenza Type B Ag negative (Negative) 09/16/22 21:30 SARS-CoV-2 Ag (Rapid) negative (Negative) 09/16/22 21:30 Discharge Plan Discharge Patient Disposition: Placed in Observation Admit Provider: Dat Wilkinson Clinical Impression: Abnormal neurological exam, Leukocytosis, Tachycardia Discharge Diet: Cardiac Discharge Activity: Limit activity as instructed Coding Level of Care Code ED Menu Planner for Chg [place]
--- NOTE | 2022-09-16 19:38 | CTR_ITS ---
PROCEDURE INFORMATION: Exam: CTA Head With Contrast, Arteriography Exam date and time: 09/16/2022 9:25 PM Age: 67 years old Clinical indication: Pain; Weakness; Headache; Additional info: Headache, arm weakness, HX stroke TECHNIQUE: Imaging protocol: Computed tomographic angiography of the head with contrast. Exam focused on the arteries. 3D rendering (Not supervised by radiologist): MIP and/or 3D reconstructed images were created by the technologist. Radiation optimization: All CT scans at this facility use at least one of these dose optimization techniques: automated exposure control; mA and/or kV adjustment per patient size (includes targeted exams where dose is matched to clinical indication); or iterative reconstruction. Contrast material: OMNI 350; Contrast volume: 100 ml; Contrast route: INTRAVENOUS (IV); COMPARISON: CT angio headneck* [id number] 07/20/2021 5:22 AM RADIATION DOSE METRICS: Total DLP (mGy-cm): 563.02 FINDINGS: ANTERIOR CIRCULATION: Right internal carotid artery: Intracranial segment is patent with no significant stenosis. No aneurysm. Right middle cerebral artery: No occlusion or significant stenosis. No aneurysm. Right anterior cerebral artery: No occlusion or significant stenosis. No aneurysm. Left internal carotid artery: Intracranial segment is patent with no significant stenosis. No aneurysm. Left middle cerebral artery: No occlusion or significant stenosis. No aneurysm. Left anterior cerebral artery: No occlusion or significant stenosis. No aneurysm. POSTERIOR CIRCULATION: Right vertebral artery: No occlusion or significant stenosis. No aneurysm. Left vertebral artery: No occlusion or significant stenosis. No aneurysm. Basilar artery: No occlusion or significant stenosis. No aneurysm. Right posterior cerebral artery: No occlusion or significant stenosis. No aneurysm. Left posterior cerebral artery: No occlusion or significant stenosis. No aneurysm. Brain: Redemonstrated patulous areas of encephalomalacia seen within the left frontal, parietal, and temporal lobes. Cerebral ventricles: No ventriculomegaly. Bones/joints: Unremarkable. No acute fracture. Soft tissues: Unremarkable. PROCEDURE INFORMATION: Exam: CTA Neck With Contrast Exam date and time: 09/16/2022 9:25 PM Age: 67 years old Clinical indication: Pain; Weakness; Headache; Additional info: Headache, arm weakness, HX stroke TECHNIQUE: Imaging protocol: Computed tomographic angiography of the neck with contrast. 3D rendering (Not supervised by radiologist): MIP and/or 3D reconstructed images were created by the technologist. Radiation optimization: All CT scans at this facility use at least one of these dose optimization techniques: automated exposure control; mA and/or kV adjustment per patient size (includes targeted exams where dose is matched to clinical indication); or iterative reconstruction. Contrast material: OMNI 350; Contrast volume: 100 ml; Contrast route: INTRAVENOUS (IV); COMPARISON: CT angio headneck* [id number] 07/20/2021 5:22 AM RADIATION DOSE METRICS: Total DLP (mGy-cm): 563.02 FINDINGS: Right common carotid artery: No stenosis. No dissection or occlusion. Right internal carotid artery: No stenosis of the extracranial segment. No dissection or occlusion. Right external carotid artery: No occlusion or stenosis of the origin. Left common carotid artery: No stenosis. No dissection or occlusion. Left internal carotid artery: No stenosis of the extracranial segment. No dissection or occlusion. Left external carotid artery: No occlusion or stenosis of the origin. Right vertebral artery: No stenosis. No dissection or occlusion. Left vertebral artery: No stenosis. No dissection or occlusion. Soft tissues: Normal. No significant soft tissue swelling. Bones/joints: No acute fracture. CT/CT angio headneck* [id number] IMPRESSION: No large vessel stenosis or occlusion. IMPRESSION: No stenosis or occlusion. REFERENCES: NASCET CRITERIA. The degree of stenosis in the cervical segment of the internal carotid artery is based on NASCET criteria. Normal is no stenosis. Mild is less than 50% stenosis. Moderate is 50-69% stenosis. Severe is 70% to 99% stenosis. Total occlusion is no detectable patent lumen.
--- NOTE | 2022-09-16 19:38 | XRR_ITS ---
PROCEDURE INFORMATION: Exam: XR Chest Exam date and time: 09/16/2022 8:00 PM Age: 67 years old Clinical indication: Pain; Left-sided; Additional info: Left chest pain TECHNIQUE: Imaging protocol: Radiologic exam of the chest. Views: 1 view. COMPARISON: CR XR chest 1V portable [id number] 07/20/2021 4:16 AM FINDINGS: Tubes, catheters and devices: Loop recorder device noted in the left chest wall. Lungs: Unremarkable. No consolidation. Pleural spaces: Unremarkable. No pleural effusion. No pneumothorax. Heart/Mediastinum: Unremarkable. No cardiomegaly. Bones/joints: Unremarkable. XR/XR chest 1V portable [id number] IMPRESSION: No acute findings.
--- NOTE | 2022-09-16 19:42 | CTR_ITS ---
PROCEDURE INFORMATION: Exam: CT Head Without Contrast Exam date and time: 09/16/2022 9:22 PM Age: 67 years old Clinical indication: Pain; Headache not specified; Patient HX: HX left acute arterial ischemic stroke middle cerebral artery 2019; Additional info: DELUCA, arm weakness, HX of stroke TECHNIQUE: Imaging protocol: Computed tomography of the head without contrast. Radiation optimization: All CT scans at this facility use at least one of these dose optimization techniques: automated exposure control; mA and/or kV adjustment per patient size (includes targeted exams where dose is matched to clinical indication); or iterative reconstruction. COMPARISON: MR head wo/w con [id number] 12/21/2021 2:07 PM RADIATION DOSE METRICS: Total DLP (mGy-cm): 1170.46 FINDINGS: Brain: No hemorrhage. Patulous areas of encephalomalacia from old infarcts in the left frontal, parietal, and temporal lobes. No edema. Moderate diffuse cerebral atrophy. Cerebral ventricles: No ventriculomegaly. Paranasal sinuses: Visualized sinuses are unremarkable. No fluid levels. Mastoid air cells: Visualized mastoid air cells are well aerated. Bones/joints: Unremarkable. No acute fracture. Soft tissues: Unremarkable. CT/CT head wo con* [id number] IMPRESSION: 1. No acute intracranial abnormality. 2. Patulous areas of encephalomalacia from old infarcts in the left frontal, parietal, and temporal lobes.
[2022-09-16 20:06] LABS: Basophils % 0.2 %; Eosinophils % 0.1 %; Hematocrit 42.1 % (42.0-52.0); Hemoglobin 13.9 g/dL (11.7-16.6); Mean Corpuscular Hemoglobin 27.9 pg (28.0-34.0); Mean Corpuscular Volume 84.5 fl (80-94); Mean Platelet Volume 9.5 fL (7.4-10.4); Monocytes # 0.9 10^3/uL (0.2-0.9); Monocytes % 5.5 %; Neutrophils # 14.08 10^3/uL (1.8-7.7); Neutrophils % 87.7 %; Nucleated Red Blood Cells % 0 %; Platelet Count 228 10^3/cmm (130-400); Red Blood Count 4.98 10^6/uL (4.1-5.3); Red Cell Distribution Width 13.8 % (12.1-15.1); White Blood Count 16.1 10^3/uL (4.0-10.0)
[2022-09-16 20:36] VITALS: BP 159/100; PULSE 110; RESP 22; O2SAT 92
[2022-09-16 20:43] LABS: Alanine Aminotransferase 16 U/L (0-41); Alkaline Phosphatase 106 U/L (40-130); Anion Gap 11.9 (5-19); Aspartate Amino Transferase 13 U/L (0-40); Blood Urea Nitrogen 16 mg/dL (8-23); Calcium 9.6 mg/dL (8.5-10.5); Carbon Dioxide 26 mmol/L (22-29); Chloride 104 mmol/L (98-107); Creatinine Clr Calc Pharmacy 100.0926; Globulin 2.5 g/dL (1.3-4.6); Glomerular Filtration Rate 74.1 mL/min (90-130); Glucose 186 mg/dL (65-115); Osmolality Calculated 292 mOsm/kg (285-295); Potassium 3.9 mmol/L (3.5-5.1); Sodium 138 mmol/L (136-145); Total Bilirubin 0.3 mg/dL (0.15-1.2); Total Protein 6.5 g/dL (6.6-8.7)
[2022-09-16 20:44] LABS: Troponin(5th) Baseline 10 ng/L (0-15)
[2022-09-16 20:49] LABS: Procalcitonin 0.02 ng/mL (0-0.5)
[2022-09-16] MEDS: sodium chloride 0.9% 1,000 ML 999 ML IV (21:37)
[2022-09-16] MEDS: acetaminophen 500 mg Tablet 1000 MG PO (21:37)
[2022-09-16 22:00] VITALS: BP 139/94; PULSE 90; RESP 18; O2SAT 92
[2022-09-16 22:00] LABS: SARS Covid-2 Antigen negative (Negative)
--- NOTE | 2022-09-16 22:00 | ECG_ITS ---
[facility] Test Date: 2022-09-16 Pat Name: Sami Hinojosa Department: Room: Gender: Male Shrinker: : 1955 Requested By: Coleman Cheng Order Number: [id number] Christofer MD: Iraj Tucker M.D. Measurements Intervals [place] Rate: 88 P: 38 NM: 156 QRS: 5 QRSD: 88 T: 42 QT: 333 QTc: 404 Interpretive Statements SINUS RHYTHM Compared to ECG 07/20/2021 13:33:28 No significant changes Electronically Signed On 09-16-2022 22:57:13 SALES STRATEGY MANAGER by Iraj Tucker M.D. [email or web address], [employer].InSync [email or web address] central regional medical [email or web address] health mi[email or web address] north.[email or web address]/store/OM/[id number]
[2022-09-16 22:29] LABS: Troponin 5 2HR 11.79 ng/L (0-15)
[2022-09-16 22:30] VITALS: BP 163/102; PULSE 88; RESP 18; O2SAT 92
[2022-09-16 22:33] LABS: Urine Appearance Clear (CLEAR); Urine Color Yellow (Yellow); pH Urine 6.5 (5-7)
[2022-09-16 22:34] LABS: Add Urine Microscopic? YES; Bilirubin Urine Neg (Negative); Blood Urine 2+ (Negative); Glucose Urine UA Trace (Normal); Ketones Urine 1+ (Negative); Leukocyte Esterase Urine Negative (Negative); Nitrate Urine Negative (Negative); Protein Urine Neg (Negative); Urobilinogen Urine Neg (Negative)
[2022-09-16 22:35] LABS: Influenza A by IFA negative (Negative); Influenza B by IFA negative (Negative)
[2022-09-16 22:38] LABS: RBC Urine 0-4 /hpf (0-2); Squamous Epithelial Cell Urine 0-4 /hpf (0-5); WBC Urine 0-4 /hpf (0-5)
[2022-09-16 22:39] LABS: Add Urine Culture? No; Mucus Urine TRACE /hpf
[2022-09-16 22:43] LABS: Thyroid Stimulating Hormone 0.68 uIU/mL (0.27-4.20)
[2022-09-16 22:44] LABS: Troponin 5 2HR Delta 1.79 ABS# (0-10)
[2022-09-16 23:00] VITALS: BP 138/110; PULSE 88; O2SAT 93
[2022-09-16 23:39] VITALS: BP 174/110; PULSE 90; RESP 20; O2SAT 92
--- NOTE | 2022-09-16 23:41 | P.HP_ITS ---
Providers/Chief Complaint Admitting Physician: Dat Wilkinson MD Primary Care Provider: Pancho Carpenter MD Chief Complaint: AMS History of Present Illness Sami Hinojosa is a 67 year old male with a past medical history of cryptogenic CVA, left MCA CVA status post tPA, residual expressive aphasia, history of PFO plans on cardiac surgery, has a loop recorder in place, who presents to [facility] due to weakness, increased forgetfulness, lapses in his memory. According to patient he has been doing fine recently, no recent infections, no recent cough, no recent UTIs or dysuria, no neck pain no neck stiffness no headache, no blurry vision, no chest pain. He has been doing well, he does have expressive aphasia from his stroke, which he deals with, and there is plans on PFO closure in the near future, he is taking all his medication as prescribed. He does have that this morning he does not remember what time he woke up, he does not remember what he had for breakfast. But what he does remember raises at he had to work with his chainsaw and he did not remember how to started up, which she thought was strange. He was able to drive to a friend's house, when he got to his friend's house he does not remember how he got there, he was acting confused, not his normal self, he forgot how to use his phone. He also reports not feeling well and having generalized weakness. But is not able to pinpoint exactly why he he is feeling this way, nor is there any particular thing that is bothering him. His friends do report that he had slurring of his words, and he did have the symptoms when he initially had his stroke but most of the slurring had resolved, he does have receptive aphasia. Family does not really notice slurring here, nor does he notice slurring currently. He does not really report any focal weakness, no changes in his vision, he does have visual deficits from his CVA. He does report trouble walking but is just more from feeling weak, but he does feel unsteady. He does report bilateral calf pain, and tenderness, is not exactly sure why. He also reports left shoulder pain, which is new and he is not exactly sure how why he is having shoulder pain Review of Systems Const: Reports: fatigue and malaise; Denies: fever(s) or chills Eyes: Denies: change in vision Card: Denies: chest pain, palpitations, syncope or pre-syncope Resp: Denies: dyspnea or non-productive cough GI: Denies: abdominal pain, nausea, vomiting, hematemesis or coffee ground emesis : Denies: flank pain, difficulty urinating, dysuria or urinary frequency Musc: Denies: neck pain or back pain Skin/Breast: Denies: rash Neuro: Reports: weakness in extremities, difficulty walking, Slurred speech present and difficulty communicating thoughts; Denies: headache(s), numbness in extremities, sensory changes, lack of coordination, dizziness, vertigo, confusion, behavioral changes, seizure-like activity or involuntary movements Psych: Denies: anxiety Medications/Allergies Home Medications Medication Instructions Recorded Confirmed Last Taken Type aspirin 81 mg tablet,delayed 81 mg PO DAILY #30 tabs 07/21/21 07/18/22 03/19/22 22:00 Rx release B-complex with vitamin C 1 cap PO DAILY 10/05/21 07/18/22 10/07/21 History ascorbate evomewx-cmuowddh-ceb 1 ea PO DAILY 10/05/21 07/18/22 10/07/21 History 1,000 mg oral powder effervescent pakt (Vit C(ascorb.calcium)(mv-mins)) elderberry fruit 200 mg capsule 200 mg PO DAILY 10/05/21 07/18/22 10/07/21 History ddmfpehavuzq-yrq-govpd acid-vit 1 tab PO DAILY 10/05/21 07/18/22 10/07/21 History K-lycop 400 mcg-20 mcg-370 mcg tablet (One-A-Day Men's 50 Plus) apixaban 5 mg tablet (Eliquis) 5 mg PO BID 03/21/22 07/18/22 03/19/22 22:00 History clopidogrel 75 mg tablet 75 mg PO DAILY #90 tabs 04/05/22 07/18/22 Unknown Rx Allergies Allergy/AdvReac Type Severity Reaction Status Date / Time adhesive Allergy ALGY-Bliste Verified 07/18/22 10:34 r lidocaine Allergy ADR-Faintin Verified 07/18/22 10:34 g PFSH Acute PFSH: Medical History Left acute arterial ischemic stroke, MCA (middle cerebral artery) Skin cancer (melanoma) Surgical History H/O melanoma excision Family History Other Cancer Social History Smoking and tobacco status: never smoked Alcohol intake: current Alcohol intake frequency: holidays/special occasions only Household members: spouse Housing: House Vitals/I&O/Wt Last Vital Signs Temp 97.6 F 09/16/22 19:09 Pulse 90 09/16/22 23:39 Resp 20 H 09/16/22 23:39 BP 174/110 09/16/22 23:39 Pulse Ox 92 09/16/22 23:39 O2 Del Method 09/16/22 23:00 09/16/22 09/16/22 09/17/22 14:59 22:59 06:59 Intake Total 1000 / 1000 Balance 1000 / 1000 Weight last 48 hrs Weight 127.006 kg Physical Exam Const: COMMON NORMALS: no acute distress and patient oriented x3 HENMT: COMMON NORMALS: normocephalic HEAD & SCALP: normocephalic Eye: COMMON NORMALS: Equal, round and reactive pupils present and EOMs intact bilaterally Neck/C-Spine: COMMON NORMALS: full ROM and no lymphadenopathy Lymph: LYMPHATIC: no lymphadenopathy noted Resp: COMMON NORMALS: normal respiratory effort, No retractions, No use of accessory muscles and clear to auscultation bilaterally AUSCULTATION: clear to auscultation bilaterally Cardio: COMMON NORMALS: regular rate, regular rhythm, S1 normal heart sound present and S2 normal heart sound present RATE: regular rate RHYTHM: re gular rhythm HEART SOUNDS: S1 normal heart sound present and S2 normal heart sound present GI: COMMON NORMALS: Normal to inspection, nondistended, normoactive bowel sounds present, Soft to palpation and non-tender Extremity: COMMON NORMALS: no pedal edema Neuro: COMMON NORMALS: patient oriented x3, CN's II-XII intact bilaterally, moves all extremities and no sensory deficits noted OTHER: Receptive aphasia Psych: COMMON NORMALS: mental status grossly normal Data 09/16/22 19:52 09/16/22 19:52 Micro: Microbiology 09/16/22 20:00 Blood Culture - Preliminary Blood SPECIMEN COLLECTED 09/16/22 19:52 Blood Culture - Preliminary Blood SPECIMEN COLLECTED A&P Assessment and plan (1) Altered mental status: (2) Seizure: (3) Transient global amnesia: (4) Expressive aphasia: (5) PFO (patent foramen ovale): (6) Cryptogenic stroke: (7) Left acute arterial ischemic stroke, MCA (middle cerebral artery): (8) Leukocytosis: (9) Tachycardia: (10) Hypertensive encephalopathy: (11) Goals of care, counseling/discussion: Plan Altered mental status -Currently alert oriented x3, no slurring of his words, no focal neurologic deficits, does have persistent receptive aphasia from his old stroke, and a stroke scale 0 -headt ct 1. No acute intracranial abnormality. 2. Patulous areas of encephalomalacia from old infarcts in the left frontal, parietal, and temporal lobes. -CTA head and neck, no acute findings, no large vessel stenosis or occlusion Plan -Etiology unclear differential includes hypertensive encephalopathy as he is hypertensive in the emergency room, other thoughts as it could be transient global amnesia as he has lapses in his memory that he cannot remember, other possibilities it could be seizures as he has encephalomalacia from his old stroke that could be a nidus for seizure events or TIA -We will watch him on medical floors -Neurochecks, NIH stroke scale, aspiration precautions, seizure precautions -We will do a trial of Keppra 500 twice daily to see if that improves his mentation -Blood pressure control -Continue aspirin, statin, Eliquis, Plavix -Monitor mentation closely -Eliquis for DVT prophylaxis -Goals of care discussion, patient is a full code Hypertension urgency, possibly with hypertensive encephalopathy -We will do a trial of Norvasc -Blood pressure control Leukocytosis? -UA no UTI, chest x-ray no focal pneumonia -No headache, no blurry vision, no neck pain, neck stiffness, no meningeal signs -Very unlikely to be bacterial versus viral meningitis -However will monitor his mentation, his vitals, his neurologic status here in the hospital -If he develops any meningeal signs or worsening neurologic status, or leukocytosis or fevers will consider lumbar puncture Generalized weakness, PT OT Attestations Medical Necessity Statement*: Patient requires hospitalization, outpatient with observation, for altered mental status, possible hypertensive encephalopathy, possible transit global amnesia, hypertensive urgency possible seizures, slurring of his words, leukocytosis, generalized weakness Coding Level of Care Code Acute Code for g Fwd Diagnoses Altered mental status R41.82 Seizure R56.9 Transient global amnesia G45.4 Expressive aphasia R47.01 PFO (patent foramen ovale) Q21.1 Cryptogenic stroke I63.9 Left acute arterial ischemic stroke, MCA (middle cerebral artery) I63.512 Leukocytosis D72.829 Tachycardia R00.0 Hypertensive encephalopathy I67.4 Goals of care, counseling/discussion Z71.89
--- NOTE | 2022-09-16 23:54 | XRR_ITS ---
PROCEDURE INFORMATION: Exam: XR Left Shoulder Exam date and time: 09/17/2022 5:06 AM Age: 67 years old Clinical indication: Injury or trauma; Other: Shoulder strain; Sprain or strain; Left; Additional info: Pain TECHNIQUE: Imaging protocol: Radiologic exam of the Left shoulder. Views: 2 or more views. COMPARISON: CR (CHEST, ) 09/16/2022 8:00 PM FINDINGS: Bones/joints: There is no acute fracture or dislocation. If symptoms persist, follow-up imaging in several days may be useful to exclude an occult fracture. No other significant acute bone or joint abnormality. Mild arthritic changes involving the left glenohumeral joint. Soft tissues: No significant acute finding. XR/XR shoulder LT min 2V* [id number] IMPRESSION: 1. No acute fracture or dislocation. 2. Other findings discussed above.
[2022-09-17] VITALS (7 sets, daily range): BP systolic 117–145; BP diastolic 78–84; PULSE 74–91; RESP 17–20; TEMP 36.4–36.8; O2SAT 91–93
[2022-09-17] MEDS: pantoprazole 40 mg SDV IVP (00:11)
[2022-09-17] MEDS: amlodipine 10 mg Tablet PO (00:11)
[2022-09-17] MEDS: apixaban 5 mg Tablet PO ×2 (00:11→11:45)
[2022-09-17 00:32] LABS: Amphetamines Screen Urine Negative (Negative); Barbiturates Screen Urine Negative (Negative); Benzodiazepines Screen Urine Negative (Negative); Cocaine Screen Urine Negative (Negative); Opiate Screen Urine Negative (Negative); PCP Screen Urine Negative (Negative); THC Screen Urine Positive (Negative)
[2022-09-17] MEDS: acetaminophen 325 mg Tablet 650 MG PO ×2 (00:45→06:58)
[2022-09-17 00:46] LABS: Erythrocyte Sedimentation Rate 4 mm/hr (0-10)
[2022-09-17 00:53] LABS: Acetaminophen 5.9 ug/mL (10-30); Lactic Sepsis W/Reflex 0.9 mmol/L (0.5-2.2)
[2022-09-17 00:54] LABS: Salicylate 0.5 mg/dL (3-10)
--- NOTE | 2022-09-17 01:38 | USR_ITS ---
PROCEDURE INFORMATION: Exam: US Duplex Lower Extremity Veins, Bilateral Exam date and time: 09/17/2022 1:47 AM Age: 67 years old Clinical indication: Swelling (edema) of limb; Lower extremity, bilateral; Additional info: Dvt TECHNIQUE: Imaging protocol: Real-time duplex ultrasound of the bilateral extremities with 2-D colin scale, color Doppler flow and spectral waveform analysis including responses to compression and other maneuvers (when performed) with image documentation. Complete exam focused on the lower extremity veins. COMPARISON: No relevant prior studies available. FINDINGS: Evaluated veins include bilateral common femoral, proximal profunda femoral, proximal/mid/distal superficial femoral, popliteal, posterior tibial, peroneal, and proximal greater saphenous veins. Right leg: No visible clot in the included veins. The included veins appear normally compressible. Duplex Doppler evaluation demonstrates flow in the evaluated veins. Left leg: No visible clot in the included veins. The included veins appear normally compressible. Duplex Doppler evaluation demonstrates flow in the evaluated veins. US/[place] [id number] IMPRESSION: 1. No evidence of acute right lower extremity DVT. 2. No evidence of acute left lower extremity DVT.
--- NOTE | 2022-09-17 01:39 | ECG_ITS ---
[facility] Test Date: 2022-09-17 Pat Name: Sami Hinojosa Department: Room: 258 Gender: Male Mycology Teacher: : 1955 Requested By: Coleman Cheng Order Number: [id number] Christofer MD: Margie Rios M.D. Measurements Intervals [place] Rate: 74 P: 26 [place]: 172 QRS: 17 QRSD: 108 T: 30 QT: 377 QTc: 420 Interpretive Statements SINUS RHYTHM Compared to ECG 09/16/2022 22:00:07 No significant changes Electronically Signed On 09-17-2022 9:16:29 SHIPPING WEIGHER by Margie Rios M.D. [id number]
[2022-09-17 02:38] LABS: Prolactin 6.53 ng/mL (4.0-15.2)
[2022-09-17 03:37] LABS: Basophils % 0.2 %; Eosinophils # 0.2 10^3/uL (0.0-0.8); Eosinophils % 1.2 %; Hematocrit 38.8 % (42.0-52.0); Hemoglobin 12.6 g/dL (11.7-16.6); Lymphocytes # 3.1 10^3/uL (0.8-4.8); Lymphocytes % 24.1 %; Mean Corpuscular HGB Conc 32.5 g/dL (30.0-36.0); Mean Corpuscular Hemoglobin 28.2 pg (28.0-34.0); Mean Corpuscular Volume 86.8 fl (80-94); Mean Platelet Volume 9.7 fL (7.4-10.4); Monocytes # 1.1 10^3/uL (0.2-0.9); Monocytes % 8.5 %; Neutrophils # 8.47 10^3/uL (1.8-7.7); Neutrophils % 65.8 %; Nucleated Red Blood Cells % 0 %; Platelet Count 208 10^3/cmm (130-400); Red Blood Count 4.47 10^6/uL (4.1-5.3); Red Cell Distribution Width 13.8 % (12.1-15.1); White Blood Count 12.9 10^3/uL (4.0-10.0)
[2022-09-17 04:10] LABS: Anion Gap 13.6 (5-19); Blood Urea Nitrogen 14 mg/dL (8-23); Calcium 8.8 mg/dL (8.5-10.5); Carbon Dioxide 25 mmol/L (22-29); Chloride 105 mmol/L (98-107); Glomerular Filtration Rate 83.7 mL/min (90-130); Glucose 106 mg/dL (65-115); Osmolality Calculated 291 mOsm/kg (285-295); Potassium 3.6 mmol/L (3.5-5.1); Sodium 140 mmol/L (136-145)
[2022-09-17 04:23] LABS: Troponin 5 6HR 13.84 ng/L (0-15)
[2022-09-17 04:48] LABS: Troponin 5 6HR Delta 2.05 ng/L (0-12)
[2022-09-17] MEDS: aspirin 81 mg EC Tablet PO (08:50)
--- NOTE | 2022-09-17 10:15 | CTR_ITS ---
PROCEDURE INFORMATION: Exam: CT Left Upper Extremity Without Contrast, Shoulder Exam date and time: 09/17/2022 11:56 AM Age: 67 years old Clinical indication: Left shoulder pain. TECHNIQUE: Imaging protocol: Computed tomography of the Left upper extremity without contrast. Exam focused on the shoulder. Radiation optimization: All CT scans at this facility use at least one of these dose optimization techniques: automated exposure control; mA and/or kV adjustment per patient size (includes targeted exams where dose is matched to clinical indication); or iterative reconstruction. COMPARISON: CR (CHEST, ) 09/17/2022 5:06 AM RADIATION DOSE METRICS: Total DLP (mGy-cm): 739.44 FINDINGS: Bones/joints: Acute appearing fracture at the posterosuperior quadrant of the left glenoid is displaced 3 mm. The fracture fragment is approximately 3 x 5 x 16 mm (series 7, image 34; series 11, image 53 and series 10, image 46). Mild posterior subluxation of the left humeral head. The left acromioclavicular joint is unremarkable. Mild osteoarthrosis of the left glenohumeral joint. There is a small inferior osteophytic ridge at the inferior aspect of the left humeral head. Acute appearing impaction fracture at the medial aspect of the left femoral head is depressed 2 mm (series 7, image 30 and series 10, image 35). Moderate hemarthrosis. Soft tissues: No rotator cuff tear. CT/CT shoulder LT wo con* [id number] IMPRESSION: 1. Evidence of recent posterior displacement/dislocation of the left humeral head. There are acute fractures at the medial aspect of the humeral head and at the posterosuperior margin of the glenoid process of the scapula. 2. Moderate hemarthrosis. 3. If additional imaging is clinically indicated, MRI may be helpful to evaluate for associated soft tissue injury.
--- NOTE | 2022-09-17 15:27 | PC.NURSE ---
AMLODIPINE PRESCRIPTION CALLED INTO [facility].
--- NOTE | 2022-09-17 19:32 | PM.DCS ---
Discharge Providers Date of Admission: 09/16/22 22:50 Date of Discharge: September 17, 2022 Attending Provider at Admission: Dat Wilkinson MD Attending Provider at Discharge: Devonte Arias Primary Care Provider: Pancho Carpenter MD Diagnoses at Discharge Discharge Diagnosis (1) Altered mental status: Status: Acute (2) Seizure: Status: Acute (3) Transient global amnesia: Status: Acute (4) Expressive aphasia: Status: Acute (5) PFO (patent foramen ovale): Status: Acute (6) Cryptogenic stroke: Status: Acute (7) Left acute arterial ischemic stroke, MCA (middle cerebral artery): Status: Acute (8) Leukocytosis: Status: Acute (9) Tachycardia: Status: Acute (10) Hypertensive encephalopathy: Status: Acute (11) Goals of care, counseling/discussion: Status: Acute Reason for Visit Reason for Visit: AMS Brief History: Sami Hinojosa is a 67 year old male with a past medical history of cryptogenic CVA, left MCA CVA status post tPA, residual expressive aphasia, history of PFO plans on cardiac surgery, has a loop recorder in place, who presents to [facility] due to weakness, increased forgetfulness, lapses in his memory.? According to patient he has been doing fine recently, no recent infections, no recent cough, no recent UTIs or dysuria, no neck pain no neck stiffness no headache, no blurry vision, no chest pain.? He has been doing well, he does have expressive aphasia from his stroke, which he deals with, and there is plans on PFO closure in the near future, he is taking all his medication as prescribed.? He does have that this morning he does not remember what time he woke up, he does not remember what he had for breakfast.? But what he does remember raises at he had to work with his chainsaw and he did not remember how to started up, which she thought was strange.? He was able to drive to a friend's house, when he got to his friend's house he does not remember how he got there, he was acting confused, not his normal self, he forgot how to use his phone.? He also reports not feeling well and having generalized weakness.? But is not able to pinpoint exactly why he he is feeling this way, nor is there any particular thing that is bothering him.? His friends do report that he had slurring of his words, and he did have the symptoms when he initially had his stroke but most of the slurring had resolved, he does have receptive aphasia.? Family does not really notice slurring here, nor does he notice slurring currently.? He does not really report any focal weakness, no changes in his vision, he does have visual deficits from his CVA.? He does report trouble walking but is just more from feeling weak, but he does feel unsteady.? He does report bilateral calf pain, and tenderness, is not exactly sure why.? He also reports left shoulder pain, which is new and he is not exactly sure how why he is having shoulder pain Hospital Course Hospital Course [facility]asant 67-year-old gentleman was monitored after episodes of amnesia, possible transient global amnesia, but on presentation consideration was also of possible seizure event, TIA, or hypertensive encephalopathy. He did report losing control of his urinary bladder. During hospitalization he also noted that he was having pain in his left shoulder and upon evaluation was found to have acute fractures of medial aspect of humeral head and posterior superior margin of the glenoid process of the scapula with moderate hemarthrosis. As per discussion he will be following up with orthopedics in office and is currently set up with a shoulder immobilizer. On presentation with some leukocytosis, but afebrile. Without treatment leukocytosis today down to 12.9. Etiology not clear. Possibly secondary to the fracture. Otherwise chest imaging is suggestive of pneumonia and has no respiratory symptoms with negative rapid COVID and influenza swabs. Urine not suggestive of UTI. No symptoms of [employer] infection or integumentary, GI or other infection. Blood pressure today is better controlled, although doubt hypertensive encephalopathy given he measures his blood pressures at home and blood pressures as per his daughter are usually in the 130s systolic. He is encouraged to continue monitoring blood pressures, provided with a prescription for amlodipine in case they become further elevated at home. Postvoid residual was obtained and was 6 mL. Given the loss of urine continence and left shoulder fractures seizure may be still suspected given also underlying prior CVA with encephalomalacia of the left frontal parietal and temporal lobes. He will continue on levetiracetam which was started on presentation with prescription given at discharge, as well as with referral for outpatient EEG and MRI and follow-up with neurology. He is at this time asked not to drive until cleared by neurology and to avoid using chainsaw or any other activities that may pose a danger to himself and others in case of recurrent episode. He uses marijuana for treatment of anxiety. Usually smokes it once daily. Discussed with him for now to avoid given unclear role if any it may have played in the episodes in case there was any unknown admixture. They prefer not to start any additional medications for anxiety currently but are okay with referral to [facility] for follow-up. She otherwise ambulated well in the room. Has had no further episodes today, and feels ready to return home to continue outpatient follow-up. He is provided with a prescription for [place] for pain for shoulder fractures. He is asked to avoid tramadol which she has left at home from past prescription due to small but present risk of seizure. Physical Exam Narrative: Accompanied by his daughter and friends. Const: COMMON NORMALS: patient oriented x3 and alert GENERAL APPEARANCE: cooperative ORIENTATION/CONSCIOUSNESS: Yes awake HENMT: COMMON NORMALS: oropharynx normal Neck/C-Spine: COMMON NORMALS: no JVD Resp: COMMON NORMALS: normal respiratory effort and clear to auscultation bilaterally AUSCULTATION: clear to auscultation bilaterally Cardio: COMMON NORMALS: no JVD, regular rhythm, S1 normal heart sound present, S2 normal heart sound present and No murmurs present (Cardio) RHYTHM: regular rhythm HEART SOUNDS: S1 normal heart sound present and S2 normal heart sound present GI: COMMON NORMALS: Normal to inspection, nondistended, normoactive bowel sounds present, Soft to palpation and non-tender PALPATION: Yes Soft to palpation Extremity: COMMON NORMALS: no joint enlargement and no pedal edema NARRATIVE EXTREMITY EXAM: Left shoulder without erythema or warmth, but with pain on mild to moderate passive range of motion. Neuro: COMMON NORMALS: patient oriented x3 and moves all extremities SENSORIUM/ORIENTATION: Yes alert OTHER: Apart from difficulty moving left upper extremity due to pain in the left shoulder neuro exam is otherwise without obvious focal abnormality. Skin: COMMON NORMALS: no rashes or lesions noted GENERAL SKIN EXAM: no rashes or lesions noted Discharge Data Studies Completed and Pending Completed Studies During Hospitalization Category Date Time Status CT angio headneck* [id number] Stat Cat Scan 09/16/22 19:[address] head wo con* [id number] Stat Cat Scan 09/16/22 19:[address] shoulder LT wo con* [id number] Routine Cat Scan 09/17/22 10:15 Completed XR chest 1V portable [id number] Stat Exams 09/16/22 19:38 Completed XR shoulder LT min 2V* [id number] Routine Exams 09/16/22 23:54 [place] [id number] Routine Ultrasound 09/17/22 01:38 Completed Pending at discharge Category Date Time Status Blood Culture Stat Lab 09/16/22 20:00 Results Radiology Impressions Chest X-Ray 09/16/22 19:38 IMPRESSION: No acute findings. Head/Neck CTA 09/16/22 19:38 IMPRESSION: No large vessel stenosis or occlusion. IMPRESSION: No stenosis or occlusion. REFERENCES: NASCET CRITERIA. The degree of stenosis in the cervical segment of the internal carotid artery is based on NASCET criteria. Normal is no stenosis. Mild is less than 50% stenosis. Moderate is 50-69% stenosis. Severe is 70% to 99% stenosis. Total occlusion is no detectable patent lumen. Head CT 09/16/22 19:42 IMPRESSION: 1. No acute intracranial abnormality. 2. Patulous areas of encephalomalacia from old infarcts in the left frontal, parietal, and temporal lobes. Shoulder X-Ray 09/16/22 23:54 IMPRESSION: 1. No acute fracture or dislocation. 2. Other findings discussed above. Venous Duplex 09/17/22 01:38 IMPRESSION: 1. No evidence of acute right lower extremity DVT. 2. No evidence of acute left lower extremity DVT. Shoulder CT 09/17/22 10:15 IMPRESSION: 1. Evidence of recent posterior displacement/dislocation of the left humeral head. There are acute fractures at the medial aspect of the humeral head and at the posterosuperior margin of the glenoid process of the scapula. 2. Moderate hemarthrosis. 3. If additional imaging is clinically indicated, MRI may be helpful to evaluate for associated soft tissue injury. Laboratory Results WBC 12.9 10^3/uL (4.0-10.0) H 09/17/22 02:18 RBC 4.47 10^6/uL (4.1-5.3) 09/17/22 02:18 Hgb 12.6 g/dL (11.7-16.6) 09/17/22 02:18 Hct 38.8 % (42.0-52.0) L 09/17/22 02:18 MCV 86.8 fl (80-94) 09/17/22 02:18 MCH 28.2 pg (28.0-34.0) 09/17/22 02:18 MCHC 32.5 g/dL (30.0-36.0) 09/17/22 02:18 RDW 13.8 % (12.1-15.1) 09/17/22 02:18 Plt Count 208 10^3/cmm (130-400) 09/17/22 02:18 MPV 9.7 fL (7.4-10.4) 09/17/22 02:18 Neut % (Auto) 65.8 % 09/17/22 02:18 Lymph % (Auto) 24.1 % 09/17/22 02:18 [place] % (Auto) 8.5 % 09/17/22 02:18 Eos % (Auto) 1.2 % 09/17/22 02:18 Baso % (Auto) 0.2 % 09/17/22 02:18 Neut # (Auto) 8.47 10^3/uL (1.8-7.7) H 09/17/22 02:18 Lymph # (Auto) 3.1 10^3/uL (0.8-4.8) 09/17/22 02:18 [place] # (Auto) 1.1 10^3/uL (0.2-0.9) H 09/17/22 02:18 Eos # (Auto) 0.2 10^3/uL (0.0-0.8) 09/17/22 02:18 Baso # (Auto) 0.0 10^3/uL (0.0-0.1) 09/17/22 02:18 Nucleated RBC % (auto) 0 % 09/17/22 02:18 Nucleated RBCs # 0.0 /100WBC 09/17/22 02:18 ESR 4 mm/hr (0-10) 09/16/22 19:52 Sodium 140 mmol/L (136-145) 09/17/22 02:18 Potassium 3.6 mmol/L (3.5-5.1) 09/17/22 02:18 Chloride 105 mmol/L (98-107) 09/17/22 02:18 Carbon Dioxide 25 mmol/L (22-29) 09/17/22 02:18 Anion Gap 13.6 (5-19) 09/17/22 02:18 BUN 14 mg/dL (8-23) 09/17/22 02:18 Creatinine 0.9 mg/dL (0.7-1.2) 09/17/22 02:18 GFR Calculation 83.7 mL/min (90-130) L 09/17/22 02:18 Glucose 106 mg/dL (65-115) 09/17/22 02:18 Calculated Osmolality 291 mOsm/kg (285-295) 09/17/22 02:18 Lactic Acid 0.9 mmol/L (0.5-2.2) 09/16/22 23:58 Calcium 8.8 mg/dL (8.5-10.5) 09/17/22 02:18 Magnesium 2.0 mg/dL (1.7-2.3) 09/16/22 23:58 Total Bilirubin 0.3 mg/dL (0.15-1.2) 09/16/22 19:52 AST 13 U/L (0-40) 09/16/22 19:52 ALT 16 U/L (0-41) 09/16/22 19:52 Alkaline Phosphatase 106 U/L (40-130) 09/16/22 19:52 Troponin T Baseline 10 ng/L (0-15) 09/16/22 19:52 Troponin T 120 Minute 11.79 ng/L (0-15) 09/16/22 21:52 Delta Troponin T 1.79 ABS# (0-10) 09/16/22 21:52 Troponin T Hi Sens 6Hr 13.84 ng/L (0-15) 09/17/22 02:18 Troponin T Hi Sens 6Hr Delta 2.05 ng/L (0-12) 09/17/22 02:18 C-Reactive Protein 3.0 mg/L (0.0-4.9) 09/16/22 19:52 Total Protein 6.5 g/dL (6.6-8.7) L 09/16/22 19:52 Albumin 4.0 g/dL (3.5-5.2) 09/16/22 19:52 Globulin 2.5 g/dL (1.3-4.6) 09/16/22 19:52 Procalcitonin 0.02 ng/mL (0-0.5) 09/16/22 19:52 TSH 0.68 uIU/mL (0.27-4.20) 09/16/22 19:52 Prolactin 6.53 ng/mL (4.0-15.2) 09/16/22 23:58 Urine Color Yellow (Yellow) 09/16/22 22:15 Urine Appearance Clear (CLEAR) 09/16/22 22:15 Urine pH 6.5 (5-7) 09/16/22 22:15 Ur Specific [place] 1.020 (1.005-1.030) 09/16/22 22:15 Urine Protein Neg (Negative) 09/16/22 22:15 Urine Glucose (UA) Trace (Normal) H 09/16/22 22:15 Urine Ketones 1+ (Negative) H 09/16/22 22:15 Urine Blood 2+ (Negative) H 09/16/22 22:15 Urine Nitrate Negative (Negative) 09/16/22 22:15 Urine Bilirubin Neg (Negative) 09/16/22 22:15 Urine Urobilinogen Neg mg/dL (Negative) 09/16/22 22:15 Ur Leukocyte Esterase Negative (Negative) 09/16/22 22:15 Urine RBC 0-4 /hpf (0-2) H 09/16/22 22:15 Urine WBC 0-4 /hpf (0-5) H 09/16/22 22:15 Ur Squamous Epith Cells 0-4 /hpf (0-5) H 09/16/22 22:15 Amorphous Sediment Not Reportable 09/16/22 22:15 Urine Bacteria None /hpf (NONE) 09/16/22 22:15 Urine Mucus Trace /hpf 09/16/22 22:15 Salicylates 0.5 mg/dL (3-10) L 09/16/22 23:58 Urine Opiates Screen Negative ng/mL (Negative) 09/16/22 22:15 Acetaminophen 5.9 ug/mL (10-30) L 09/16/22 23:58 Ur Barbiturates Screen Negative ng/mL (Negative) 09/16/22 22:15 Ur Phencyclidine Scrn Negative ng/mL (Negative) 09/16/22 22:15 Ur Amphetamines Screen Negative ng/mL (Negative) 09/16/22 22:15 U Benzodiazepines Scrn Negative ng/mL (Negative) 09/16/22 22:15 Urine Cocaine Screen Negative ng/mL (Negative) 09/16/22 22:15 U Marijuana (THC) Screen Positive ng/mL (Negative) H 09/16/22 22:15 Influenza Type A Ag negative (Negative) 09/16/22 21:30 Influenza Type B Ag negative (Negative) 09/16/22 21:30 SARS-CoV-2 Ag (Rapid) negative (Negative) 09/16/22 21:30 Vitals Last Vital Signs Temp 97.6 F 09/17/22 17:07 Pulse 74 09/17/22 17:07 Resp 18 09/17/22 17:07 BP 129/81 09/17/22 17:07 Pulse Ox 92 09/17/22 17:07 O2 Del Method 09/17/22 12:00 Discharge Plan Discharge Patient Disposition: Home Condition: Stable Prescriptions: New Roweepra 500 mg tablet 500 mg PO BID Qty: 60 0RF amlodipine 5 mg tablet 5 mg PO DAILY Qty: 90 0RF Rx Instructions: In case blood pressure rising above 140 systolic (top number) or 90 diastolic (bottom number). hydrocodone-acetaminophen 5-325 mg tablet 1 tab PO Q6H PRN (Reason: pain) Qty: 15 0RF Continued B-complex with vitamin C Capsule 1 cap PO DAILY elderberry fruit 200 mg Capsule 200 mg PO DAILY One-A-Day Men's 50 Plus 400-20-370 mcg Tablet 1 tab PO DAILY aspirin 81 mg Tablet,Delayed Release (Dr/Ec) 81 mg PO DAILY Qty: 30 0RF Eliquis 5 mg Tablet 5 mg PO BID Discharge Orders: Discharge Order (Routine); Ordered 09/17/22 Ordered By: Devonte Arias Other Ambulatory Orders: EEG electroencephalogram (Routine) Timeframe: 1 Week Facility: [facility] - Location: Neurology Ordered By: Devonte Arias MR head wo/w con [id number] (Routine) Timeframe: 1 Week Facility: [facility] - Location: Radiology [facility] Ordered By: Devonte Arias Referrals: [facility] [Provider Group] (Please follow up with [facility] walk in clinic as needed.) [facility] [Provider Group] - 1 week (Please call the Orthopedic clinic Monday morning to schedule an appointment. [phone]) Isabel Hathaway MD [Physician] - 1 week (Please call Dr. Hathaway's office Monday to schedule a hospital follow up appointment within 1 week. ) Pancho Carpenter MD [Primary Care Provider] - 09/23/22 9:15 am Discharge Diet: Cardiac Discharge Activity: Limit activity as instructed Patient Instructions: Hydrocodone/Acetaminophen (By mouth), Amlodipine (By mouth), Levetiracetam (By mouth), Arm Fracture in Adults (GEN), Scapular Fracture (GEN), Transient Global Amnesia (GEN), Shoulder Immobilizer (GEN) Activity Restrictions/Additional Instructions: At this time until cleared by neurology avoid driving, use of chainsaw, climbing high places or other activities which may may endanger you or others in case of repeat episode. Follow-up for EEG, MRI brain and with neurology for reassessment following episodes of transient global amnesia, possible seizure. Avoid marijuana. Discuss with your primary doctor episode of urinary incontinence. Follow-up with your primary doctor also with regards to left shoulder injury. Due to fractures in the left shoulder please wear shoulder immobilizer. Avoid falls. Follow-up with orthopedics in office in a week. Continue to monitor blood pressures at home. You are given prescription for amlodipine to start in case blood pressures are rising above 140 systolic (top number) or 90 diastolic (bottom number). In case of severe worsening or change in symptoms, or other symptoms including loss of consciousness or fever, seek medical attention. Discharge Attestations Time Spent in Discharge Care*: greater than 30 min Quality Metrics Clinical Quality Measures [ No reported AMI, CVA or VTE this stay] Coding Level of Care Code Acute Chg FW DC note Diagnoses Altered mental status R41.82 Seizure R56.9 Transient global amnesia G45.4 Expressive aphasia R47.01 PFO (patent foramen ovale) Q21.1 Cryptogenic stroke I63.9 Left acute arterial ischemic stroke, MCA (middle cerebral artery) I63.512 Leukocytosis D72.829 Tachycardia R00.0 Hypertensive encephalopathy I67.4 Goals of care, counseling/discussion Z71.89
== END 2022-09-17 16:35 | disposition home or self-care (01) ==
LOC: ER 22:50 → MEDSURG 23:20
PROVIDERS: Admitting Provider Family Medicine; Emergency Provider Emergency Medicine; PCP Family Medicine; Visit Provider Internal Medicine
DX: R41.82 Altered mental status, unspecified (principal); R56.9 Unspecified convulsions; G45.4 Transient global amnesia; R47.01 Aphasia; Q21.12 Patent foramen ovale; I63.9 Cerebral infarction, unspecified; I63.512 Cerebral infarction due to unspecified occlusion or stenosis of left middle cerebral artery; D72.829 Elevated white blood cell count, unspecified; R00.0 Tachycardia, unspecified; Z71.89 Other specified counseling; R60.0 Localized edema; Z79.82 Long term (current) use of aspirin; G93.89 Other specified disorders of brain
CPT/HCPCS: 36415; 51701; 70450; 70496; 70498; 71045; 73030; 73200; 80048; 80053; 80306; 80307; 81001; 83605; 83735; 84145; 84146; 84443; 84484; 85025; 85651; 86140; 87040; 87426; 87804; 92523; 93005; 93970; 94664; 96374; 96375; 97165; 97530; 97760; 99285; C9113; G0378; J1953; J7030; L3670; Q9967

== ENCOUNTER → 2022-10-05 15:21 | Outpatient (BNVA) | payer MEDICARE, OTHER, SELFPAY | PROVIDERS: PCP Family Medicine; Visit Provider Orthopaedic Surgery | DX: X58.XXXA Exposure to other specified factors, initial encounter (principal); S42.142A Displaced fracture of glenoid cavity of scapula, left shoulder, initial encounter for closed fracture | CPT/HCPCS: 23570 ==

== ENCOUNTER → 2022-10-07 12:59 | Outpatient (BNVA) | payer MEDICARE, OTHER, SELFPAY | PROVIDERS: PCP Family Medicine; Visit Provider Specialist | DX: I69.320 Aphasia following cerebral infarction (principal); Q21.12 Patent foramen ovale; Z95.0 Presence of cardiac pacemaker | CPT/HCPCS: 99215 ==

== ENCOUNTER → 2022-10-19 13:00 | Outpatient (BNVA) | payer MEDICARE, OTHER, SELFPAY | PROVIDERS: PCP Family Medicine; Visit Provider Orthopaedic Surgery | DX: S42.142A Displaced fracture of glenoid cavity of scapula, left shoulder, initial encounter for closed fracture (principal); X58.XXXA Exposure to other specified factors, initial encounter | CPT/HCPCS: 73030; 99024 ==

== ENCOUNTER 2024-10-18 16:23 | Emergency (ER) | payer MEDICARE, OTHER, SELFPAY ==
[2024-10-18] VITALS (33 sets, daily range): BP systolic 125–160; BP diastolic 60–85; PULSE 88–103; RESP 15–22; TEMP 36.6–37; O2SAT 93–98; BMI 34.9
--- NOTE | 2024-10-18 18:24 | W.ED.GIBLEED ---
HPI - GI Bleed General: Chief complaint: GI Bleed Stated complaint: abnormal labs Time Seen by Provider: 10/18/24 17:46 History of Present Illness: 69-year-old man with a history of A-fib and pacemaker placement who is on chronic Xarelto therapy who presents emergency room with abnormal lab work. He has been having issues with black stools and GI bleeding for a few months now. He is had endoscopy and colonoscopy. Possible planned capsule study. He had lab work done at [facility] and was told his hemoglobin was low and told to go to the emergency room. He is had all this workup done apparently in [place]. He says he feels a little lightheaded and a little short of breath but not much worse than usual. No acute changes in his status at this point. Related Data Home Medications ?Medication ?Instructions ?Recorded ?Confirmed B-complex with vitamin C 1 cap PO DAILY 10/05/21 10/19/22 elderberry fruit 200 mg capsule 200 mg PO DAILY 10/05/21 10/19/22 [id number] acid-vit 1 tab PO DAILY 10/05/21 10/19/22 K-lycop 400 mcg-20 mcg-370 mcg tablet (One-A-Day Men's 50 Plus (with vitamin K)) apixaban 5 mg tablet (Eliquis) 5 mg PO BID 03/21/22 10/19/22 Previous Rx's ?Medication ?Instructions ?Recorded aspirin 81 mg tablet,delayed 81 mg PO DAILY #30 tabs 07/21/21 release hydrocodone 5 mg-acetaminophen 325 1 tab PO Q6H PRN pain #15 tabs 09/17/22 mg tablet Allergies Allergy/AdvReac Type Severity Reaction Status Date / Time adhesive Allergy ALGY-Bliste Verified 10/19/22 13:37 r lidocaine Allergy ADR-Faintin Verified 10/19/22 13:37 g Review of Systems Narrative: Constitutional symptoms: Negative except as documented in HPI. Skin symptoms: Negative except as documented in HPI. Eye symptoms: Negative except as documented in HPI. ENMT symptoms: Negative except as documented in HPI. Respiratory symptoms: Negative except as documented in HPI. Cardiovascular symptoms: Negative except as documented in HPI. Gastrointestinal symptoms: Negative except as documented in HPI. Genitourinary symptoms: Negative except as documented in HPI. Musculoskeletal symptoms: Negative except as documented in HPI. Neurologic symptoms: Negative except as documented in HPI. Psychiatric symptoms: Negative except as documented in HPI. Endocrine symptoms: Negative except as documented in HPI. PFSH ED PFSH: Medical History Encephalomalacia Left acute arterial ischemic stroke, MCA (middle cerebral artery) Skin cancer (melanoma) Surgical History H/O melanoma excision Family History Other Cancer Social History Smoking and tobacco/nicotine status: never used tobacco/nicotine Alcohol intake: current Alcohol intake frequency: holidays/special occasions only Substance/Drug Use: never Household members: spouse Housing: House Physical Exam Narrative: EXAM NARRATIVE: General: Alert, no acute distress. Skin: Warm, dry. Head: Normocephalic, atraumatic. Neck: Supple, trachea midline. Eye: Extraocular movements are intact. Ears, nose, mouth and throat: mucosa moist. Cardiovascular: Regular, Normal peripheral perfusion. Respiratory: Lungs are clear to auscultation, respirations are non-labored, breath sounds are equal, Symmetrical chest wall expansion. Gastrointestinal: Soft, Nontender, Non distended Musculoskeletal: Normal ROM, no deformity. Neurological: Alert and oriented, No focal neurological deficit observed. Psychiatric: Cooperative, appropriate mood & affect. Course Vital Signs: Vital signs: Vital Signs Temperature 98.1 F 10/18/24 16:34 Pulse Rate 99 10/18/24 18:34 Respiratory Rate 16 10/18/24 16:34 Blood Pressure 127/80 10/18/24 18:34 Pulse Oximetry 94 10/18/24 18:34 Oxygen Delivery Me thod Room Air 10/18/24 16:34 MDM - GI Bleed Medical Decision Making Medical decision making: Differential diagnosis including but not limited to and based on the above HPI, review of systems and physical exam: In a patient with upper GI bleeding would have concern for upper gi bleed from varices or ulcer. Concern for anemia. Concern for liver disease. concern for anticoagulation. Orders placed to evaluate differential diagnosis based on the above differential, HPI and physical exam Lab Review: Laboratory results were reviewed and interpreted by myself the emergency room physician. Patient does have anemia and is symptomatic with cardiovascular disease so transfusion seems appropriate at this time. He is not having any acute upper GI bleeding of note. They are not looking for further diagnostics at this point. Apparently he oozes when he is on his blood thinner. Planning for outpatient capsule endoscopy. They request just transfusion now and they will continue workup at home. Given that his BUN and creatinine are elevated he is not having any active upper GI bleeding at this time. I reviewed the patient's medical record. Assessment and plan: GI bleeding Anemia Cardiovascular disease ? Given that the patient is symptomatic and has cardiovascular disease equivalents transfusing and he will continue workup with his primary provider. - Discharged home - Discussed plan with patient. Answered any questions. - Evaluation and treatment of this problem were appropriate in the emergency setting. Lab Data 10/18/24 18:27 10/18/24 18:27 Laboratory Results WBC 8.82 10^3/uL (3.29-11.43) 10/18/24 18: RBC 2.85 10^6/uL (3.85-5.65) L 10/18/24 18: Hgb 7.90 g/dL (11.27-16.99) L 10/18/24 18: Hct 26.1 % (37-53) L 10/18/24 18: MCV 91.6 fl (82-101) 10/18/24 18: MCH 27.7 pg (27-33) 10/18/24 18: MCHC 30.3 g/dL (30-55) 10/18/24 18: RDW 14.2 % (12.1-15.1) 10/18/24 18: Plt Count 254 10^3/cmm (157-399) 10/18/24 18: MPV 9.9 fL (7.4-10.4) 10/18/24 18: Neut % (Auto) 54.7 % 10/18/24 18:27 Lymph % (Auto) 33.9 % 10/18/24 18:27 [place] % (Auto) 6.7 % 10/18/24 18: Eos % (Auto) 4.0 % 10/18/24 18: Baso % (Auto) 0.5 % 10/18/24 18:27 Neut # (Auto) 4.83 10^3/uL (1.8-7.7) 10/18/24 18: Lymph # (Auto) 3.0 10^3/uL (0.8-4.8) 10/18/24 18: [place] # (Auto) 0.6 10^3/uL (0.2-0.9) 10/18/24 18: Eos # (Auto) 0.4 10^3/uL (0.0-0.8) 10/18/24 18: Baso # (Auto) 0.0 10^3/uL (0.0-0.1) 10/18/24: Nucleated RBC % (auto) 0 % 10/18/24 Nucleated RBCs # 0.0 /100WBC 10/18/24 18: PT 13.40 SECONDS (12.1-14.9) 10/18/24: INR 0.95 (0.8-1.2) 10/18/24: APTT 28.3 SECONDS (23.9-36.7) 10/18/24 18: Sodium 140 mmol/L (136-145) 10/18/24 18: Potassium 4.2 mmol/L (3.5-5.1) 10/18/24: Chloride 105 mmol/L (98-107) 10/18/24: Carbon Dioxide 26 mmol/L (22-29) 10/18/24: Anion Gap 13.2 (5-19) 10/18/24: BUN 17 mg/dL (8-23) 10/18/24: Creatinine 1.0 mg/dL (0.7-1.2) 10/18/24 18: GFR Calculation Not Reportable 10/18/24: Glucose 94 mg/dL (65-115) 10/18/24 Calculated Osmolality 291 mOsm/kg (285-295) 10/18/24 18: Calcium 8.9 mg/dL (8.5-10.5) 10/18/24 18: Total Bilirubin 0.2 mg/dL (0.15-1.2) 10/18/24: AST 18 U/L (0-40) 10/18/24 18:27 ALT 29 U/L (0-41) 10/18/24 18:27 Alkaline Phosphatase 93 U/L (40-130) 10/18/24 18:27 Total Protein 6.2 g/dL (6.6-8.7) L 10/18/24 18:27 Albumin 3.8 g/dL (3.5-5.2) 10/18/24 18:27 Globulin 2.4 g/dL (1.3-4.6) 10/18/24 18:27 No radiology studies performed this visit Discharge Plan Discharge Patient Disposition: Home Clinical Impression: Anemia, Dyspnea, Cardiovascular disease Condition: Stable Prescriptions: No Action B-complex with vitamin C Capsule 1 cap PO DAILY elderberry fruit 200 mg Capsule 200 mg PO DAILY One-A-Day Men's 50 Plus(vit K) 400-20-370 mcg Tablet 1 tab PO DAILY aspirin 81 mg Tablet,Delayed Release (Dr/Ec) 81 mg PO DAILY Qty: 30 0RF Eliquis 5 mg Tablet 5 mg PO BID hydrocodone-acetaminophen 5-325 mg tablet 1 tab PO Q6H PRN (Reason: pain) Qty: 15 0RF Discharge Orders: Discharge ED (Routine); Ordered 10/18/24 Ordered By: Marybel Rivera Referrals: Pancho Carpenter MD [Primary Care Provider] - Discharge Diet: Usual diet Discharge Activity: Increase activity as tolerated Patient Instructions: Opioid Safety, Pain Management Activity Restrictions/Additional Instructions: Please follow-up with your primary and your urologic nurse in the next few days. Likely it is time for capsule endoscopy. Also any discontinuation of your blood thinners needs to go through your urologic nurse or your primary provider. Thank you for choosing [facility] for your healthcare needs today. Please realize this is an emergency room and that we are providing you with a medical screening exam and this may not be complete and all inclusive of all the testing and or work up that you may need to determine your ailment or severity of your illness. You have been screened and evaluated and felt safe for discharge. Health conditions do change or evolve sometimes and as such it is important that you follow up with your Primary Doctor to be re checked, 3-5 days is a general good time frame for follow up. You are always welcome to return to the ED for re assessment if your symptoms are worsening or you have new concerns Print Language: Kazakh Coding Level of Care Code ED [employer] Research Ecologist for Loraine Magana
[2024-10-18 18:40] LABS: Basophils % 0.5 %; Eosinophils # 0.4 10^3/uL (0.0-0.8); Hematocrit 26.1 % (37-53); Lymphocytes % 33.9 %; Mean Corpuscular HGB Conc 30.3 g/dL (30-55); Mean Corpuscular Hemoglobin 27.7 pg (27-33); Mean Corpuscular Volume 91.6 fl (82-101); Mean Platelet Volume 9.9 fL (7.4-10.4); Monocytes # 0.6 10^3/uL (0.2-0.9); Monocytes % 6.7 %; Neutrophils # 4.83 10^3/uL (1.8-7.7); Neutrophils % 54.7 %; Nucleated Red Blood Cells % 0 %; Platelet Count 254 10^3/cmm (157-399); Red Blood Count 2.85 10^6/uL (3.85-5.65); Red Cell Distribution Width 14.2 % (12.1-15.1); White Blood Count 8.82 10^3/uL (3.29-11.43)
[2024-10-18 18:55] LABS: INR 0.95 (0.8-1.2); Partial Thromboplastin Time 28.3 SECONDS (23.9-36.7)
[2024-10-18 19:04] LABS: Alanine Aminotransferase 29 U/L (0-41); Albumin Level 3.8 g/dL (3.5-5.2); Alkaline Phosphatase 93 U/L (40-130); Anion Gap 13.2 (5-19); Aspartate Amino Transferase 18 U/L (0-40); Blood Urea Nitrogen 17 mg/dL (8-23); Calcium 8.9 mg/dL (8.5-10.5); Carbon Dioxide 26 mmol/L (22-29); Chloride 105 mmol/L (98-107); Creatinine Clr Calc Pharmacy 97.2731; Globulin 2.4 g/dL (1.3-4.6); Glucose 94 mg/dL (65-115); Osmolality Calculated 291 mOsm/kg (285-295); Potassium 4.2 mmol/L (3.5-5.1); Sodium 140 mmol/L (136-145); Total Bilirubin 0.2 mg/dL (0.15-1.2); Total Protein 6.2 g/dL (6.6-8.7)
--- NOTE | 2024-10-18 22:05 | ECG_ITS ---
[facility] Test Date: 2024-10-18 Pat Name: Sami Hinojosa Department: Room: Gender: Male Stock Clipper: : 1955 Requested By: Marybel Turner Order Number: [id number] Christofer MD: ANNMARIE BUNN Measurements Intervals [place] Rate: 88 P: 49 DE: 174 QRS: 13 QRSD: 90 T: 55 QT: 341 QTc: 413 Interpretive Statements SINUS RHYTHM Compared to ECG 09/17/2022 02:47:02 No significant changes Electronically Signed On 10-22-2024 23:51:41 STOCK CLIPPER by ANNMARIE BUNN [email or web address]
--- NOTE | 2024-10-18 22:07 | PC.NURSE ---
220: Patient reports sharp right sided chest pain that has now subsided. Blood transfusion paused and Dr. Waldrop notified. Vitals and EKG obtained. Resume blood transfusion per Dr. Waldrop.
[2024-10-19] VITALS: BP 115/69; PULSE 83; RESP 19; O2SAT 95
[2024-10-19 00:10] VITALS: BP 115/69; PULSE 87; RESP 16; O2SAT 97
[2024-10-19 00:20] VITALS: BP 138/71; PULSE 88; RESP 15; O2SAT 98
[2024-10-19 00:21] VITALS: TEMP 36.9
[2024-10-19 00:41] VITALS: BP 124/73; PULSE 83; RESP 19; O2SAT 96
== END 2024-10-19 00:53 | disposition home or self-care (01) ==
PROVIDERS: Emergency Provider Emergency Medicine; PCP Family Medicine
DX: D64.9 Anemia, unspecified (principal); R06.00 Dyspnea, unspecified; I25.10 Atherosclerotic heart disease of native coronary artery without angina pectoris; Z79.82 Long term (current) use of aspirin; Z79.01 Long term (current) use of anticoagulants; Z85.820 Personal history of malignant melanoma of skin; Z95.0 Presence of cardiac pacemaker
CPT/HCPCS: 36415; 36430; 80053; 85025; 85610; 85730; 86850; 86900; 86920; 93005; 99284; P9016

== ENCOUNTER 2024-12-18 15:10 | Oncology outpatient (recurring) (ONCR) | payer MEDICARE, OTHER, SELFPAY ==
[2024-12-18 16:51] LABS: Basophils % 0.4 %; Eosinophils # 0.3 10^3/uL (0.0-0.8); Eosinophils % 3.9 %; Hematocrit 31.4 % (37-53); Lymphocytes # 2.8 10^3/uL (0.8-4.8); Lymphocytes % 33.3 %; Mean Corpuscular HGB Conc 29.3 g/dL (30-55); Mean Corpuscular Hemoglobin 22.7 pg (27-33); Mean Corpuscular Volume 77.3 fl (82-101); Monocytes # 0.7 10^3/uL (0.2-0.9); Monocytes % 8.1 %; Neutrophils # 4.55 10^3/uL (1.8-7.7); Neutrophils % 54.1 %; Nucleated Red Blood Cells % 0 %; Platelet Count 235 10^3/cmm (157-399); Red Blood Count 4.06 10^6/uL (3.85-5.65); Red Cell Distribution Width 15.6 % (12.1-15.1); Reticulocyte % 1.4 % (0.5-2.0); White Blood Count 8.41 10^3/uL (3.29-11.43)
[2024-12-18 17:16] LABS: Alanine Aminotransferase 37 U/L (0-41); Albumin Level 3.9 g/dL (3.5-5.2); Alkaline Phosphatase 98 U/L (40-130); Anion Gap 14.2 (5-19); Aspartate Amino Transferase 21 U/L (0-40); Blood Urea Nitrogen 13 mg/dL (8-23); Calcium 8.9 mg/dL (8.5-10.5); Carbon Dioxide 24 mmol/L (22-29); Chloride 107 mmol/L (98-107); Creatinine Clr Calc Pharmacy 117.5013; Ferritin 9 ng/mL (30-400); Globulin 2.6 g/dL (1.3-4.6); Glucose 86 mg/dL (65-115); Iron 38 ug/dL (59-158); Lactate Dehydrogenase 202 U/L (135-225); Osmolality Calculated 291 mOsm/kg (285-295); Percent Saturation 8.1 % (20-50); Potassium 4.2 mmol/L (3.5-5.1); Sodium 141 mmol/L (136-145); Total Bilirubin 0.3 mg/dL (0.15-1.2); Total Iron Binding Capacity 469 mcg/dl; Total Protein 6.5 g/dL (6.6-8.7); Unsaturated Iron Binding 431 ug/dL (112-347)
[2024-12-18 17:22] LABS: Vitamin B12 714 pg/mL (232-1245)
[2024-12-18 17:35] LABS: Folate Level 14.9 ng/mL (4.5-32.2)
== END 2024-12-25 23:59 | disposition home or self-care (01) ==
LOC: ONCMED 15:10
PROVIDERS: PCP Family Medicine; Visit Provider Internal Medicine
DX: D72.829 Elevated white blood cell count, unspecified (principal); I67.4 Hypertensive encephalopathy; D64.9 Anemia, unspecified; D50.9 Iron deficiency anemia, unspecified; K92.1 Melena; I48.91 Unspecified atrial fibrillation; Z87.891 Personal history of nicotine dependence; Z85.820 Personal history of malignant melanoma of skin; Z79.01 Long term (current) use of anticoagulants; Z95.0 Presence of cardiac pacemaker; Z86.73 Personal history of transient ischemic attack (TIA), and cerebral infarction without residual deficits
CPT/HCPCS: 36415; 80053; 82607; 82728; 82746; 83010; 83540; 83550; 83615; 85025; 85045; 86880; 99204

== ENCOUNTER 2024-12-31 15:17 | Outpatient (CLI) | payer MEDICARE, OTHER, SELFPAY | END 2024-12-31 15:18 | disposition home or self-care (01) | PROVIDERS: PCP Family Medicine; Visit Provider Internal Medicine | DX: D49.0 Neoplasm of unspecified behavior of digestive system (principal) | CPT/HCPCS: 36415; 84260; 84586; 86316 ==

== ENCOUNTER 2025-01-07 14:12 | Oncology outpatient (recurring) (ONCR) | payer MEDICARE, OTHER, SELFPAY | END 2025-01-25 23:59 | disposition home or self-care (01) | PROVIDERS: PCP Family Medicine; Visit Provider Internal Medicine | DX: D64.9 Anemia, unspecified (principal); K92.1 Melena; Z95.0 Presence of cardiac pacemaker; Z79.01 Long term (current) use of anticoagulants; I48.20 Chronic atrial fibrillation, unspecified; Z86.73 Personal history of transient ischemic attack (TIA), and cerebral infarction without residual deficits | CPT/HCPCS: 99213 ==

== ENCOUNTER 2025-02-19 12:00 | Oncology outpatient (recurring) (ONCR) | payer MEDICARE, OTHER, SELFPAY ==
[2025-02-12 13:51] LABS: Basophils % 0.4 %; Eosinophils # 0.3 10^3/uL (0.0-0.8); Eosinophils % 3.8 %; Hematocrit 35.8 % (37-53); Lymphocytes # 2.4 10^3/uL (0.8-4.8); Lymphocytes % 32.5 %; Mean Corpuscular HGB Conc 29.9 g/dL (30-55); Mean Corpuscular Hemoglobin 21.5 pg (27-33); Mean Platelet Volume 9.2 fL (7.4-10.4); Monocytes # 0.7 10^3/uL (0.2-0.9); Monocytes % 8.8 %; Neutrophils # 4.02 10^3/uL (1.8-7.7); Neutrophils % 54.2 %; Nucleated Red Blood Cells % 0 %; Platelet Count 202 10^3/cmm (157-399); Red Blood Count 4.97 10^6/uL (3.85-5.65); Red Cell Distribution Width 19.9 % (12.1-15.1); White Blood Count 7.41 10^3/uL (3.29-11.43)
[2025-02-12 14:08] LABS: Alanine Aminotransferase 17 U/L (0-41); Albumin Level 3.9 g/dL (3.5-5.2); Alkaline Phosphatase 107 U/L (40-130); Anion Gap 11.8 (5-19); Aspartate Amino Transferase 15 U/L (0-40); Blood Urea Nitrogen 14 mg/dL (8-23); Calcium 9.1 mg/dL (8.5-10.5); Carbon Dioxide 27 mmol/L (22-29); Chloride 107 mmol/L (98-107); Globulin 2.6 g/dL (1.3-4.6); Glucose 99 mg/dL (65-115); Lactate Dehydrogenase 203 U/L (135-225); Osmolality Calculated 293 mOsm/kg (285-295); Potassium 4.8 mmol/L (3.5-5.1); Sodium 141 mmol/L (136-145); Total Bilirubin 0.3 mg/dL (0.15-1.2); Total Protein 6.5 g/dL (6.6-8.7)
[2025-02-12 14:29] LABS: Ferritin 8 ng/mL (30-400); Iron 47 ug/dL (59-158); Percent Saturation 10.4 % (20-50); Total Iron Binding Capacity 451 mcg/dl; Unsaturated Iron Binding 404 ug/dL (112-347)
[2025-02-19] MEDS: ferric carboxy (PYXIS) 750 MG in sodium chloride 0.9% (100 ml) 100 ML 345 MG IV (12:35)
[2025-02-19 13:04] VITALS: BP 117/78; PULSE 67; O2SAT 94
== END 2025-02-24 23:59 | disposition home or self-care (01) ==
PROVIDERS: PCP Family Medicine; Visit Provider Internal Medicine
DX: D50.9 Iron deficiency anemia, unspecified; Z79.899 Other long term (current) drug therapy; Z53.9 Procedure and treatment not carried out, unspecified reason
CPT/HCPCS: 36415; 80053; 82728; 83010; 83540; 83550; 83615; 85025; 96365; 99213; J1439

== ENCOUNTER 2025-02-26 13:25 | Oncology outpatient (recurring) (ONCR) | payer MEDICARE, OTHER, SELFPAY ==
[2025-02-26 13:38] VITALS: BP 125/78; PULSE 74; RESP 17; TEMP 36.6; O2SAT 96
[2025-02-26] MEDS: ferric carboxy (PYXIS) 750 MG in sodium chloride 0.9% (100 ml) 100 ML 345 MG IV (13:58)
[2025-02-26 14:41] VITALS: BP 124/81; PULSE 67; RESP 18; TEMP 36.3; O2SAT 96
== END 2025-03-27 23:59 | disposition home or self-care (01) ==
PROVIDERS: PCP Family Medicine; Visit Provider Internal Medicine
DX: D64.9 Anemia, unspecified (principal); Z79.899 Other long term (current) drug therapy
CPT/HCPCS: 96365; J1439; J7050

== ENCOUNTER 2025-04-09 13:27 | Oncology outpatient (recurring) (ONCR) | payer MEDICARE, OTHER, SELFPAY ==
[2025-04-09 14:15] LABS: Hematocrit 42.5 % (37-53); Hemoglobin 13.70 g/dL (11.27-16.99); Mean Corpuscular HGB Conc 32.2 g/dL (30-55); Mean Corpuscular Hemoglobin 25.4 pg (27-33); Mean Corpuscular Volume 78.7 fl (82-101); Nucleated Red Blood Cells % 0 %; Platelet Count 172 10^3/cmm (157-399); Red Blood Count 5.40 10^6/uL (3.85-5.65); White Blood Count 6.48 10^3/uL (3.29-11.43)
[2025-04-09 14:49] LABS: Alanine Aminotransferase 21 U/L (0-41); Albumin Level 4.1 g/dL (3.5-5.2); Alkaline Phosphatase 109 U/L (40-130); Anion Gap 15.4 (5-19); Aspartate Amino Transferase 16 U/L (0-40); Blood Urea Nitrogen 14 mg/dL (8-23); Calcium 9.2 mg/dL (8.5-10.5); Carbon Dioxide 24 mmol/L (22-29); Chloride 105 mmol/L (98-107); Creatinine Clr Calc Pharmacy 103.6937; Ferritin 188 ng/mL (30-400); Globulin 2.4 g/dL (1.3-4.6); Glucose 92 mg/dL (65-115); Iron 112 ug/dL (59-158); Osmolality Calculated 290 mOsm/kg (285-295); Potassium 4.4 mmol/L (3.5-5.1); Sodium 140 mmol/L (136-145); Total Iron Binding Capacity 340 mcg/dl; Total Protein 6.5 g/dL (6.6-8.7); Unsaturated Iron Binding 228 ug/dL (112-347)
== END 2025-04-27 23:59 | disposition home or self-care (01) ==
PROVIDERS: PCP Family Medicine; Visit Provider Internal Medicine
DX: D50.0 Iron deficiency anemia secondary to blood loss (chronic) (principal); K92.1 Melena; Z87.891 Personal history of nicotine dependence; Z79.899 Other long term (current) drug therapy; D64.9 Anemia, unspecified; I48.91 Unspecified atrial fibrillation; Z95.0 Presence of cardiac pacemaker; Z86.73 Personal history of transient ischemic attack (TIA), and cerebral infarction without residual deficits; Z79.01 Long term (current) use of anticoagulants
CPT/HCPCS: 36415; 80053; 82728; 83010; 83540; 83550; 83615; 85025; 99214

== ENCOUNTER 2025-05-21 14:18 | Oncology outpatient (recurring) (ONCR) | payer MEDICARE, OTHER, SELFPAY ==
[2025-05-21 14:45] LABS: Hematocrit 45.8 % (37-53); Hemoglobin 14.80 g/dL (11.27-16.99); Mean Corpuscular HGB Conc 32.3 g/dL (30-55); Mean Corpuscular Hemoglobin 26.6 pg (27-33); Mean Corpuscular Volume 82.2 fl (82-101); Nucleated Red Blood Cells % 0 %; Platelet Count 184 10^3/cmm (157-399); Red Blood Count 5.57 10^6/uL (3.85-5.65); White Blood Count 7.55 10^3/uL (3.29-11.43)
[2025-05-21 15:03] LABS: Alanine Aminotransferase 24 U/L (0-41); Albumin Level 4.2 g/dL (3.5-5.2); Alkaline Phosphatase 112 U/L (40-130); Anion Gap 11.5 (5-19); Aspartate Amino Transferase 15 U/L (0-40); Blood Urea Nitrogen 12 mg/dL (8-23); Calcium 9.3 mg/dL (8.5-10.5); Carbon Dioxide 29 mmol/L (22-29); Chloride 104 mmol/L (98-107); Creatinine Clr Calc Pharmacy 102.9915; Ferritin 157 ng/mL (30-400); Globulin 2.7 g/dL (1.3-4.6); Glucose 96 mg/dL (65-115); Iron 116 ug/dL (59-158); Osmolality Calculated 290 mOsm/kg (285-295); Potassium 4.5 mmol/L (3.5-5.1); Sodium 140 mmol/L (136-145); Total Iron Binding Capacity 367 mcg/dl; Total Protein 6.9 g/dL (6.6-8.7); Unsaturated Iron Binding 251 ug/dL (112-347)
== END 2025-05-27 23:59 | disposition home or self-care (01) ==
PROVIDERS: Nurse Practitioner Family; PCP Family Medicine; Visit Provider Internal Medicine
DX: D50.0 Iron deficiency anemia secondary to blood loss (chronic) (principal); K92.1 Melena; D64.9 Anemia, unspecified; R10.9 Unspecified abdominal pain; I48.91 Unspecified atrial fibrillation; Z95.0 Presence of cardiac pacemaker; Z87.891 Personal history of nicotine dependence; Z79.01 Long term (current) use of anticoagulants; Z79.899 Other long term (current) drug therapy
CPT/HCPCS: 36415; 80053; 82728; 83540; 83550; 85025; 99214

== ENCOUNTER 2025-07-23 12:56 | Oncology outpatient (recurring) (ONCR) | payer MEDICARE, OTHER, SELFPAY ==
[2025-07-23 13:27] LABS: Hematocrit 44.1 % (37-53); Hemoglobin 14.60 g/dL (11.27-16.99); Mean Corpuscular HGB Conc 33.1 g/dL (30-55); Mean Corpuscular Hemoglobin 28.1 pg (27-33); Mean Corpuscular Volume 85.0 fl (82-101); Nucleated Red Blood Cells % 0 %; Platelet Count 191 10^3/cmm (157-399); Red Blood Count 5.19 10^6/uL (3.85-5.65); White Blood Count 8.44 10^3/uL (3.29-11.43)
[2025-07-23 13:44] LABS: Alanine Aminotransferase 25 U/L (0-41); Albumin Level 4.0 g/dL (3.5-5.2); Alkaline Phosphatase 113 U/L (40-130); Anion Gap 16.5 (5-19); Aspartate Amino Transferase 16 U/L (0-40); Blood Urea Nitrogen 15 mg/dL (8-23); Calcium 9.1 mg/dL (8.5-10.5); Carbon Dioxide 23 mmol/L (22-29); Chloride 107 mmol/L (98-107); Ferritin 191 ng/mL (30-400); Globulin 2.7 g/dL (1.3-4.6); Glucose 103 mg/dL (65-115); Iron 129 ug/dL (59-158); Osmolality Calculated 295 mOsm/kg (285-295); Potassium 4.5 mmol/L (3.5-5.1); Sodium 142 mmol/L (136-145); Total Iron Binding Capacity 356 mcg/dl; Total Protein 6.7 g/dL (6.6-8.7); Unsaturated Iron Binding 227 ug/dL (112-347)
== END 2025-07-27 23:59 | disposition home or self-care (01) ==
LOC: ONCMED 12:56
PROVIDERS: Nurse Practitioner Family; PCP Family Medicine; Visit Provider Nurse Practitioner
DX: D50.0 Iron deficiency anemia secondary to blood loss (chronic) (principal); R03.0 Elevated blood-pressure reading, without diagnosis of hypertension; Z87.891 Personal history of nicotine dependence; Z86.73 Personal history of transient ischemic attack (TIA), and cerebral infarction without residual deficits; Z79.01 Long term (current) use of anticoagulants; Z85.820 Personal history of malignant melanoma of skin; Z79.899 Other long term (current) drug therapy
CPT/HCPCS: 36415; 80053; 82728; 83540; 83550; 85025; 99213